=== PATIENT | male | born 1965 | race Caucasian/White ===

== ENCOUNTER 2017-02-16 11:16 | Emergency (ER) | payer MEDICARE ==
--- NOTE | 2017-02-16 12:19 | Emergency Department Report ---
Chief Complaint: Wound/Laceration Stated Complaint: HEAD WOUND - HPI History of Present Illness: 51M p/w c/o small abscess to back of scalp. On bactrim from UC but not getting better. HAS NOT had I&D - ROS Review of Systems: pain on back of scalp x2 days - Exam Vital Signs: Vital Signs 02/16/17 12:00 Temperature 97.7 F Pulse Rate 68 Blood Pressure 103/64 O2 Sat by Pulse 97 Oximetry Physical Exam: small abscess on back of scalp MSE screening note: Focused history and physical exam performed. Due to findings the following was ordered: MSE: 3cm occipital scalp abscess' 1- needs I&D 2- pt already on bactrim ED Disposition for MSE Condition: Stable
--- NOTE | 2017-02-16 16:08 | Emergency Department Report ---
ED Back Pain/Injury HPI - General Chief Complaint: Wound/Laceration Stated Complaint: HEAD WOUND Time Seen by Provider: 02/16/17 16:07 Source: patient Limitations: No Limitations - Related Data Allergies Allergy/AdvReac Type Severity Reaction Status Date / Time chlorpromazine HCl Allergy Hives Verified 02/16/17 11:56 [From Thorazine] haloperidol [From Haldol] Allergy Hives Verified 02/16/17 11:56 haloperidol lactate Allergy Hives Verified 02/16/17 11:56 [From Haldol] trazodone Allergy Hives Verified 02/16/17 11:56 ziprasidone HCl [From Geodon] Allergy Hives Verified 02/16/17 11:56 ziprasidone mesylate Allergy Hives Verified 02/16/17 11:56 [From Geodon] ED Review of Systems ROS: Stated complaint: HEAD WOUND Other details as noted in HPI ED Past Medical Hx - Past Medical History Hx Hypertension: Yes Hx Diabetes: Yes Hx Psychiatric Treatment: Yes (bibpolar) - Surgical History Past Surgical History?: Yes Additional Surgical History: ankle pins. - Social History Smoking Status: Never Smoker Substance Use Type: None ED Physical Exam - General Limitations: No Limitations ED Course Vital Signs 02/16/17 12:00 Temperature 97.7 F Pulse Rate 68 Blood Pressure 103/64 O2 Sat by Pulse 97 Oximetry Critical care attestation.: If time is entered above; I have spent that time in minutes in the direct care of this critically ill patient, excluding procedure time. ED Disposition Condition: Stable Referrals: PRIMARY CARE, [Primary Care Provider] - 3-5 Days
--- NOTE | 2017-02-16 16:57 | Emergency Department Report ---
Abscess Boil HPI - HPI Chief Complaint: Wound/Laceration Stated Complaint: HEAD WOUND Time Seen by Provider: 02/16/17 16:07 Duration: >1 Week (she had said that he had not to the back of his head for 8-9 months and it's getting worse. He said his primary care doctor in the [facility] is aware of it.) Location: Head Severity: Severe (7 out of 10 and sore worse with touch) History: Yes Pain (Knot at back of head.), Yes Previous History, No Fever, No Purulent Drainage, No Numbness, No Foreign Body, No Insect Bite HPI: Report that he is visiting from the [place] any primary care doctors in the [facility]. He said that he came to the emergency room if he has a knot to the right back of his head that he was seen in urgent care for and they gave him sulfa Bactrim which he took for 9 days but it's not getting better. He said that the swelling is getting worse. He said that rash started 8-9 months ago and his primary care doctor is aware of it and told him to leave it alone and he will see him when he comes back to the [place]. Patient said he is a diabetic and he is worried. He said the antibiotic did not help. Tetanus vaccine is up-to-date. He is on metformin and Lantus and said his blood glucose today was 80. Denies any fever or chills. Patient states that he thinks it started off from him shaving and is just getting bigger. Localized to affected area. Denies any drainage from the site. Home Medications: Previous Rx's Medication Instructions Recorded Last Taken Type Clindamycin [Clindamycin CAP] 300 mg PO Q8H #30 cap 02/16/17 Unknown Rx traMADol [Ultram] 50 mg PO Q6HR PRN #20 tablet 02/16/17 Unknown Rx Allergies/Adverse Reactions: Allergies Allergy/AdvReac Type Severity Reaction Status Date / Time chlorpromazine HCl Allergy Hives Verified 02/16/17 11:56 [From Thorazine] haloperidol [From Haldol] Allergy Hives Verified 02/16/17 11:56 haloperidol lactate Allergy Hives Verified 02/16/17 11:56 [From Haldol] trazodone Allergy Hives Verified 02/16/17 11:56 ziprasidone HCl [From Geodon] Allergy Hives Verified 02/16/17 11:56 ziprasidone mesylate Allergy Hives Verified 02/16/17 11:56 [From [facility]] ED Review of Systems ROS: Stated complaint: HEAD WOUND Other details as noted in HPI Comment: All other systems reviewed and negative Constitutional: no symptoms reported ENT: denies: ear pain, throat pain, epistaxis, congestion Respiratory: no symptoms reported Cardiovascular: denies: chest pain, palpitations, edema, syncope Gastrointestinal: denies: abdominal pain, nausea, vomiting, diarrhea Musculoskeletal: denies: back pain, joint swelling, arthralgia, myalgia Skin: rash (painful, red area to back of head) Neurological: denies: headache, weakness, abnormal gait, vertigo ED Past Medical Hx - Past Medical History Previous Medical History?: Yes Hx Hypertension: Yes Hx Diabetes: Yes Hx Psychiatric Treatment: Yes (bibpolar) - Surgical History Past Surgical History?: Yes Additional Surgical History: ankle pins. - Family History Family history: diabetes, hypertension - Social History Smoking Status: Never Smoker Substance Use Type: None - Medications Home Medications: Home Medications Medication Instructions Recorded Confirmed Last Taken Type Clindamycin [Clindamycin CAP] 300 mg PO Q8H #30 cap 02/16/17 Unknown Rx traMADol [Ultram] 50 mg PO Q6HR PRN #20 tablet 02/16/17 Unknown Rx ED Abscess Boil Physical Exam - Exam General: Vital signs noted. No distress. Alert and acting appropriately. This is a 51-year-old male well-nourished well-developed in no acute distress. Front/Back of Body, Lg (Color): 1 - Indurated erythema, tender to palpate area 2 cm to right occipital scalp area. No fluctuance. Size: 2 cm Exam: Yes Tenderness (right occipital scalp), Yes Surrounding Cellulites/ Erythema (right occipital scalp), Yes Normal Neurologic Exam, Yes Normal Circulation, No Fluctuance, No Lymphangitis, No Crepitation, No Heart Murmur Exam: EXT:No clubbing, cyanosis or edema. +2 pulses to all extremities no neurovascular compromise. Lungs: Sounds clear to auscultate bilaterally, Normal work of breathing. Cardiovascular: S1, S2. Regular rhythm negative murmur I & D Note - I & D Note I & D Note: Cellulitic area to right occipital scalp area unable to be incision and drained due to non-fluctuance. Area is indurated but no fluctuance. I discussed the patient that he will need to place warm compresses the site 3-4 times a day to facilitate soft then and drainage. Patient was given clindamycin 600 mg IM in emergency room. I also discussed with him that I'll change his antibiotic because current antibiotic is not working. Patient said his tetanus vaccine is up-to-date. ED Course Vital Signs 02/16/17 12:00 Temperature 97.7 F Pulse Rate 68 Blood Pressure 103/64 O2 Sat by Pulse 97 Oximetry Vital Signs 02/16/17 02/16/17 12:00 16:58 Temperature 97.7 F Pulse Rate 68 Respiratory 18 Rate Blood Pressure 103/64 O2 Sat by Pulse 97 Oximetry - Reevaluation(s) Reevaluation #1: 02/16/17 17:05 Patient given clindamycin 600 mg IM for cellulitic area right occipital scalp. He was given Motrin 600 mg by mouth for pain. Critical care attestation.: If time is entered above; I have spent that time in minutes in the direct care of this critically ill patient, excluding procedure time. ED Medical Decision Making - Medical Decision Making ED course: Pt here report that he is traveling from the [facility] and he has red , painful abscess to the back of his head that his primary care physician has been following. He said it started after he was shaven 8-9 months ago but it's getting bigger. Physical findings for 2 cm, erythema, tender to palpate indurated and nonfluctuant area to right posterior scalp. Unable to drain area due to non-fluctuance. Patient completed 9 days of Bactrim and has one more day to complete and I told him to finish Bactrim and he can go ahead and start clindamycin 3 times a day. Patient given clindamycin 600 mg in emergency room IM and also given Motrin 600 mg in emergency room. Patient said that he spoke with his primary care doctor in the [facility] and he said not to touch it until he comes back. Patient said that he went to urgent care clinic in [place] and that is where they prescribed him a Bactrim. I discussed with patient that he needs to follow-up with the rn observation regarding in cellulitic area that is not getting better to occipital scalp area. Patient given prescription for clindamycin and Ultram and referred to rn observation because he said he will be here until 02/28/2017 ED Disposition Clinical Impression: Abscess or cellulitis of scalp, Painful periwound skin Disposition: DC-01 TO HOME OR SELFCARE Is pt being admited?: No Does the pt Need Aspirin: No Condition: Stable Instructions: Cellulitis (ED), Abscess (ED) Additional Instructions: Please keep affected area clean and dry Please take antibiotic as prescribed Call your primary care physician and let them know that you were in the emergency room today. You will need to follow up with a rn observation in 2-3 days regarding in nonhealing abscess to scalp. Take Ultram for pain but please do not drive or operate heavy machinery while taking this medication causes drowsiness. please check your blood sugar daily and ensures that you have good control of blood sugar Please complete Bactrim DS and start clindamycin later tonight If you develop fever, increasing redness, nausea or vomiting before he can see her primary care rn observation please return to the emergency room ROSIO Please apply warm compresses to affected area 3-4 times a day Prescriptions: Clindamycin [Clindamycin CAP] 300 mg PO Q8H #30 cap traMADol [Ultram] 50 mg PO Q6HR PRN #20 tablet PRN Reason: Pain Referrals: PIYUSH ABAD MD [Staff Physician] - 2-3 Days Forms: Accompanied Note, Work/School Release Form(ED)
[2017-02-16] MEDS ORDERED: CLEOCIN IM ONE (16:59)
[2017-02-16] MEDS ORDERED: MOTRIN PO ONE (16:59)
[2017-02-16 17:41] VITALS: BP 106/73
== END 2017-02-16 17:41 | disposition home or self-care (01) ==
LOC: ED 11:16
DX: L02.811 Cutaneous abscess of head [any part, except face] (principal); L08.9 Local infection of the skin and subcutaneous tissue, unspecified; E11.9 Type 2 diabetes mellitus without complications; I10 Essential (primary) hypertension; Z88.8 Allergy status to other drugs, medicaments and biological substances
CPT/HCPCS: 96372

== ENCOUNTER 2017-02-20 04:01 | Emergency (ER) | payer MEDICARE ==
[2017-02-20 04:25] VITALS: BP 159/107
--- NOTE | 2017-02-20 06:48 | Emergency Department Report ---
ED General Adult HPI - General Chief complaint: Animal Bite Stated complaint: INSECT BITE TO HEAD Time Seen by Provider: 02/20/17 06:42 Source: patient Mode of arrival: Ambulatory Limitations: No Limitations - History of Present Illness Initial comments: pt is a 51 y/o aam with hx of DMII, htn, and chronic back pain who present for infected spider bite to posterior neck/scalp pt on clindamycin po started on advises that ed said abscess not soft enough to I&d on , but is getting softer and ready to pop, pt advised that he tried to drain the abscess himself at home. Onset/Timin -: days(s) Location: neck Radiation: non-radiation Severity scale (0 -10): 5 Quality: aching Consistency: constant Improves with: none Worsens with: other (palpation) Treatments Prior to Arrival: none - Related Data Previous Rx's Medication Instructions Recorded Last Taken Type Clindamycin [Clindamycin CAP] 300 mg PO Q8H #30 cap 02/16/17 Unknown Rx traMADol [Ultram] 50 mg PO Q6HR PRN #20 tablet 02/16/17 Unknown Rx Naproxen [Naprosyn TAB] 500 mg PO BID PRN #30 tablet 02/20/17 Unknown Rx Allergies Allergy/AdvReac Type Severity Reaction Status Date / Time chlorpromazine HCl Allergy Hives Verified 02/16/17 11:56 [From Thorazine] haloperidol [From Haldol] Allergy Hives Verified 02/16/17 11:56 haloperidol lactate Allergy Hives Verified 02/16/17 11:56 [From Haldol] trazodone Allergy Hives Verified 02/16/17 11:56 ziprasidone HCl [From Geodon] Allergy Hives Verified 02/16/17 11:56 ziprasidone mesylate Allergy Hives Verified 02/16/17 11:56 [From Geodon] ED Review of Systems ROS: Stated complaint: INSECT BITE TO HEAD Other details as noted in HPI Constitutional: denies: chills, fever Eyes: denies: eye pain, eye discharge, vision change ENT: denies: ear pain, throat pain Respiratory: denies: cough, shortness of breath, wheezing Cardiovascular: denies: chest pain, palpitations Endocrine: no symptoms reported Gastrointestinal: denies: abdominal pain, nausea, diarrhea Genitourinary: denies: urgency, dysuria Musculoskeletal: denies: back pain, joint swelling, arthralgia Skin: lesions (abscess occiptal scalp and neck ). denies: rash Neurological: denies: headache, weakness, paresthesias Psychiatric: denies: anxiety, depression Hematological/Lymphatic: denies: easy bleeding, easy bruising ED Past Medical Hx - Past Medical History Previous Medical History?: Yes Hx Hypertension: Yes Hx Diabetes: Yes Hx Psychiatric Treatment: Yes (bibpolar) - Surgical History Past Surgical History?: Yes Additional Surgical History: ankle pins. - Social History Smoking Status: Current Every Day Smoker Substance Use Type: None - Medications Home Medications: Home Medications Medication Instructions Recorded Confirmed Last Taken Type Clindamycin [Clindamycin CAP] 300 mg PO Q8H #30 cap 02/16/17 Unknown Rx traMADol [Ultram] 50 mg PO Q6HR PRN #20 tablet 02/16/17 Unknown Rx Naproxen [Naprosyn TAB] 500 mg PO BID PRN #30 tablet 02/20/17 Unknown Rx ED Physical Exam - General Limitations: No Limitations General appearance: alert, in no apparent distress - Head Head exam: Present: atraumatic, normocephalic, other (occipital abscess 1x3 cm erythema fluctuant painful to touch scant purulent drainage ) - Eye Eye exam: Present: normal appearance - ENT ENT exam: Present: mucous membranes moist - Neck Neck exam: Present: normal inspection - Respiratory Respiratory exam: Present: normal lung sounds bilaterally. Absent: respiratory distress - Cardiovascular Cardiovascular Exam: Present: regular rate, normal rhythm. Absent: systolic murmur, diastolic murmur, rubs, gallop - GI/Abdominal GI/Abdominal exam: Present: soft, normal bowel sounds - Rectal Rectal exam: Present: deferred - Extremities Exam Extremities exam: Present: normal inspection - Back Exam Back exam: Present: normal inspection - Neurological Exam Neurological exam: Present: alert, oriented X3 - Psychiatric Psychiatric exam: Present: normal affect, normal mood - Skin Skin exam: Present: warm, dry, intact, normal color, other (abscess as noted above ). Absent: rash ED Course Vital Signs 02/20/17 04:12 Temperature 97.9 F Pulse Rate 92 H Respiratory 20 Rate Blood Pressure 159/107 O2 Sat by Pulse 98 Oximetry - I & D Posterior Head Type of Procedure: Simple Site: posterior scalp/neck abscess 1 x 3 cm smooth erythema painful fluctuant Blade Size: 11 I & D Procedure: betadine prep Progress: abscess , cleaned with betadine solution , anesthesia with 1% lidocaine plain, 2 cc, incision straight x 1 with 11 blade, blunt disection with sterile forceps , output purulent moderate amount wound irrigated with sterile saline 50 cc, wound left open to air, as patient cannot tolerate packing, pt given wound care instructions pt verbalized agreement and understanding of same, pt tolerated procedure with minimal distress all bleeding controlled sterile dressing applied to wound. ED Medical Decision Making - Medical Decision Making pt is a 51 y/o aam with hx of DMII, htn, and chronic back pain who present for infected spider bite to posterior neck/scalp pt on clindamycin po started on advises that ed said abscess not soft enough to I&d on , but is getting softer and ready to pop, pt advised that he tried to drain the abscess himself at home. ID of posterior occipital abscess , see I&D note, pt given wound care instructions will follow up with primary care in 3 days for wound check or return to emergency if unable to get into primary care office. pt verbalized agreement and understanding with discharge plan. pt will continue roxicet currently rx by pain management, clindamycin currently rx an in patient possession at this time. Critical care attestation.: If time is entered above; I have spent that time in minutes in the direct care of this critically ill patient, excluding procedure time. ED Disposition Clinical Impression: Abscess or cellulitis of scalp Disposition: -01 TO HOME OR SELFCARE Is pt being admited?: No Does the pt Need Aspirin: No Condition: Good Prescriptions: Naproxen [Naprosyn TAB] 500 mg PO BID PRN #30 tablet PRN Reason: Pain Referrals: PRIMARY CARE, [Primary Care Provider] - 3-5 Days Forms: Work/School Release Form(ED) Time of Disposition: 06:59
== END 2017-02-20 07:06 | disposition home or self-care (01) ==
LOC: ED 04:01
DX: L02.811 Cutaneous abscess of head [any part, except face] (principal); L03.811 Cellulitis of head [any part, except face]; I10 Essential (primary) hypertension; E11.9 Type 2 diabetes mellitus without complications; F17.200 Nicotine dependence, unspecified, uncomplicated
CPT/HCPCS: 82962

== ENCOUNTER 2019-03-06 06:36 | Inpatient (IN) | payer MEDICARE ==
[2019-03-06 07:19] LABS: Basophils # (Auto) 0.1 K/mm3 (0.0-0.1); Basophils % (Auto) 0.7 % (0.0-1.8); Eosinophils % (Auto) 0.1 % (0.0-4.3); Hematocrit 45.3 % (35.5-45.6); Hemoglobin 15.4 gm/dl (11.8-15.2); Lymphocytes # (Auto) 3.4 K/mm3 (1.2-5.4); Lymphocytes % (Auto) 20.2 % (13.4-35.0); Mean Corpuscular HGB Conc 34 % (32-34); Mean Corpuscular Volume 84 fl (84-94); Monocytes # (Auto) 1.3 K/mm3 (0.0-0.8); Monocytes % (Auto) 7.9 % (0.0-7.3); Platelet Count 227 K/mm3 (140-440); Red Blood Count 5.37 M/mm3 (3.65-5.03)
[2019-03-06 07:27] LABS: BUN/Creatinine Ratio 13; Blood Urea Nitrogen 13 mg/dL (9-20); Calcium 9.9 mg/dL (8.4-10.2); Hemolysis Index 3
[2019-03-06 07:37] LABS: Bilirubin,Urine NEG (Negative); Blood,Urine MOD (Negative); Color,Urine Yellow (Yellow); Mucus,Urine FEW /HPF; Urobilinogen,Urine < 2.0 mg/dL (<2.0)
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
[2019-03-06 07:53] LABS: Benzodiazepines Screen,Urine PRESUMPTIVE NEGATIVE; Methadone Screen,Urine PRESUMPTIVE NEGATIVE; Opiate Screen,Urine PRESUMPTIVE NEGATIVE
[2019-03-06] MEDS ORDERED: ATIVAN PO ONE (07:57)
[2019-03-06 08:12] LABS: Amphetamine Screen,Urine PRESUMPTIVE POSITIVE; Cannabinoid Screen,Urine PRESUMPTIVE POSITIVE; Cocaine Screen,Urine PRESUMPTIVE POSITIVE
[2019-03-06] MEDS ORDERED: HumuLIN R IV ONE (08:12)
--- NOTE | 2019-03-06 08:30 | XRay Report ---
CHEST 1 VIEW 03/06/2019 8:05 AM INDICATION / CLINICAL INFORMATION: hypertension. COMPARISON: None available. FINDINGS: SUPPORT DEVICES: None. HEART / MEDIASTINUM: No significant abnormality. LUNGS / PLEURA: No significant pulmonary or pleural abnormality. No pneumothorax. ADDITIONAL FINDINGS: No significant additional findings. IMPRESSION: 1. No acute findings. Signer Name: Sandrine Monroy MD Signed: 03/06/2019 8:26 AM Workstation Name: [id number]
[2019-03-06 08:44] LABS: INR 1.06 (0.87-1.13)
[2019-03-06 08:45] LABS: Partial Thromboplastin Time 24.7 Sec. (24.2-36.6)
[2019-03-06 08:46] LABS: Creatine Kinase MB 7.5 ng/mL (0.0-4.0)
[2019-03-06] MEDS ORDERED: CATAPRES PO ONE (10:53)
[2019-03-06] MEDS ORDERED: NACL 0.9% 1000 ML 1,000 ML IV ONE (10:56)
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
[2019-03-06] MEDS ORDERED: D50W (25GM) Syringe IV PRN ×2 (11:37→11:41)
[2019-03-06] MEDS ORDERED: TYLENOL PO PRN (11:37)
[2019-03-06] MEDS ORDERED: ZOFRAN IV PRN (11:37)
[2019-03-06] MEDS ORDERED: SODIUM CHLORIDE FLUSH SYRINGE 10 ML IV PRN (11:37)
[2019-03-06] MEDS: ASPIRIN PO SCH (11:44)
[2019-03-06] MEDS ORDERED: NACL 0.9% 1000 ML 1,000 ML ONE (11:45)
[2019-03-06] MEDS ORDERED: NON-FORMULARY (Clonidine 0.3 MG) PO SCH ×2 (11:45→18:00)
[2019-03-06] MEDS ORDERED: ASPIRIN ONE (11:45)
[2019-03-06] MEDS: ROXICODONE PO PRN ×2 (16:49→23:09)
[2019-03-06] MEDS: HumaLOG SUB-Q SCH ×2 (20:19→22:11)
[2019-03-06] MEDS ORDERED: NON-FORMULARY (Seroquel 200 MG) PO SCH (22:00)
[2019-03-06] MEDS: CATAPRES PO SCH (22:12)
[2019-03-06] MEDS: LOVENOX SUB-Q SCH (22:13)
[2019-03-06] MEDS: SODIUM CHLORIDE FLUSH SYRINGE 10 ML IV SCH (22:13)
[2019-03-07 05:34] LABS: Basophils % (Auto) 0.4 % (0.0-1.8); Eosinophils # (Auto) 0.2 K/mm3 (0.0-0.4); Eosinophils % (Auto) 1.9 % (0.0-4.3); Hematocrit 40.8 % (35.5-45.6); Hemoglobin 13.7 gm/dl (11.8-15.2); Lymphocytes # (Auto) 2.8 K/mm3 (1.2-5.4); Lymphocytes % (Auto) 31.9 % (13.4-35.0); Mean Corpuscular HGB Conc 34 % (32-34); Mean Corpuscular Volume 86 fl (84-94); Monocytes # (Auto) 0.6 K/mm3 (0.0-0.8); Monocytes % (Auto) 7.2 % (0.0-7.3); Platelet Count 169 K/mm3 (140-440); Red Blood Count 4.77 M/mm3 (3.65-5.03); Red Cell Distribution Width 15.1 % (13.2-15.2)
[2019-03-07 05:57] LABS: BUN/Creatinine Ratio 14; Blood Urea Nitrogen 13 mg/dL (9-20); Calcium 8.7 mg/dL (8.4-10.2); Hemolysis Index 5
[2019-03-07] MEDS: HumaLOG SUB-Q SCH ×4 (08:48→22:51)
[2019-03-07] MEDS: ASPIRIN PO SCH (10:38)
[2019-03-07] MEDS: CATAPRES PO SCH ×2 (10:38→21:55)
[2019-03-07] MEDS: SODIUM CHLORIDE FLUSH SYRINGE 10 ML IV SCH ×2 (10:39→22:50)
[2019-03-07] MEDS: ROXICODONE PO PRN ×2 (10:54→18:15)
[2019-03-07] MEDS ORDERED: AFLURIA QUAD 2019-2020 (3YR UP) IM ONE (12:00)
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
[2019-03-07] MEDS: BUSPAR PO SCH ×2 (15:31→21:56)
--- NOTE | 2019-03-07 18:17 | Progress Note ---
Assessment and Plan Assessment and plan: Suicidal ideation [facility] consulted, following 1013 form signed by ED Physician Bipolar disorder Hypertensive urgency resumed meds diabetes mellitus type 2 , uncontrolled accucheck Increase Lantus to 40 Units qhs. he was on 55 Units qhs at home Polysubstance abuse. I counseled him on importance of quittting cocaine abuse Marijuana abuse Amphetamine abuse Full code status Patient is medically clear for discharge or transfer. History Interval history: Suicidal ideations No chest pain Blood glucose high Hospitalist Physical - Physical exam Narrative exam: Gen: Not in acute distress, lying in bed, HEENT: Surgical scar on scalp, Neck: supple, no JVD Heart: S1 and S2 reg, no murmurs, rubs or gallop Lungs: Clear to auscultation, no rhonchi, no wheeze Abd: soft, non tender, non distended, normal BS, Ext: No edema, no clubbing, no cyanosis Neuro: Awake, alert, oriented X 3, no focal neurological signs Psych:suicidal ideations - Constitutional Vitals: Temp Pulse Resp BP Pulse Ox 97.3 F L 79 18 123/78 96 03/07/19 05:10 03/07/19 10:38 03/07/19 05:10 03/07/19 10:38 03/07/19 05:10 Results - Labs CBC & Chem 7: 03/07/19 04:57 03/07/19 04:57 Labs: Laboratory Last Values WBC 8.8 K/mm3 (4.5-11.0) 03/07/19 04:57 RBC 4.77 M/mm3 (3.65-5.03) 03/07/19 04:57 Hgb 13.7 gm/dl (11.8-15.2) 03/07/19 04:57 Hct 40.8 % (35.5-45.6) 03/07/19 04:57 MCV 86 fl (84-94) 03/07/19 04:57 MCH 29 pg (28-32) 03/07/19 04:57 MCHC 34 % (32-34) 03/07/19 04:57 RDW 15.1 % (13.2-15.2) 03/07/19 04:57 Plt Count 169 K/mm3 (140-440) 03/07/19 04:57 Lymph % (Auto) 31.9 % (13.4-35.0) 03/07/19 04:57 [place] % (Auto) 7.2 % (0.0-7.3) 03/07/19 04:57 Eos % (Auto) 1.9 % (0.0-4.3) 03/07/19 04:57 Baso % (Auto) 0.4 % (0.0-1.8) 03/07/19 04:57 Lymph # 2.8 K/mm3 (1.2-5.4) 03/07/19 04:57 [place] # 0.6 K/mm3 (0.0-0.8) 03/07/19 04:57 Eos # 0.2 K/mm3 (0.0-0.4) 03/07/19 04:57 Baso # 0.0 K/mm3 (0.0-0.1) 03/07/19 04:57 Seg Neutrophils % 58.6 % (40.0-70.0) 03/07/19 04:57 Seg Neutrophils # 5.2 K/mm3 (1.8-7.7) 03/07/19 04:57 PT 13.5 Sec. (12.2-14.9) 03/06/19 08:15 INR 1.06 (0.87-1.13) 03/06/19 08:15 APTT 24.7 Sec. (24.2-36.6) 03/06/19 08:15 Sodium 138 mmol/L (137-145) 03/07/19 04:57 Potassium 3.9 mmol/L (3.6-5.0) 03/07/19 04:57 Chloride 100.5 mmol/L (98-107) 03/07/19 04:57 Carbon Dioxide 24 mmol/L (22-30) 03/07/19 04:57 Anion Gap 17 mmol/L 03/07/19 04:57 BUN 13 mg/dL (9-20) 03/07/19 04:57 Creatinine 0.9 mg/dL (0.8-1.5) 03/07/19 04:57 Estimated GFR > 60 ml/min 03/07/19 04:57 BUN/Creatinine Ratio 14 % 03/07/19 04:57 Glucose 334 mg/dL (75-100) H 03/07/19 04:57 POC Glucose 258 (70-105) H 03/07/19 16:37 Lactic Acid 1.50 mmol/L (0.7-2.0) 03/06/19 13:01 Calcium 8.7 mg/dL (8.4-10.2) 03/07/19 04:57 Magnesium 2.00 mg/dL (1.7-2.3) 03/06/19 08:15 Total Creatine Kinase 357 units/L (55-170) H 03/06/19 08:15 CK-MB (CK-2) 7.5 ng/mL (0.0-4.0) H 03/06/19 08:15 CK-MB (CK-2) Rel Index 2.1 (0-4) 03/06/19 08:15 Troponin T < 0.010 ng/mL (0.00-0.029) 03/06/19 08:15 NT-Pro-B Natriuret Pep 172.1 pg/mL (0-900) 03/06/19 08:15 Urine Color Yellow (Yellow) 03/06/19 07:11 Urine Turbidity Clear (Clear) 03/06/19 07:11 Urine pH 5.0 (5.0-7.0) 03/06/19 07:11 Ur Specific [place] 1.024 (1.003-1.030) 03/06/19 07:11 Urine Protein 30 mg/dl mg/dL (Negative) 03/06/19 07:11 Urine Glucose (UA) >=500 mg/dL (Negative) 03/06/19 07:11 Urine Ketones Neg mg/dL (Negative) 03/06/19 07:11 Urine Blood Mod (Negative) 03/06/19 07:11 Urine Nitrite Neg (Negative) 03/06/19 07:11 Urine Bilirubin Neg (Negative) 03/06/19 07:11 Urine Urobilinogen < 2.0 mg/dL (<2.0) 03/06/19 07:11 Ur Leukocyte Esterase Neg (Negative) 03/06/19 07:11 Urine WBC (Auto) 1.0 /HPF (0.0-6.0) 03/06/19 07:11 Urine RBC (Auto) 3.0 /HPF (0.0-6.0) 03/06/19 07:11 Urine Mucus Few /HPF 03/06/19 07:11 Salicylates < 0.3 mg/dL (2.8-20.0) L 03/06/19 06:50 Urine Opiates Screen Presumptive negative 03/06/19 07:11 Urine Methadone Screen Presumptive negative 03/06/19 07:11 Acetaminophen < 5.0 ug/mL (10.0-30.0) L 03/06/19 06:50 Ur Barbiturates Screen Presumptive negative 03/06/19 07:11 Ur Phencyclidine Scrn Presumptive negative 03/06/19 07:11 Ur Amphetamines Screen Presumptive positive 03/06/19 07:11 U Benzodiazepines Scrn Presumptive negative 03/06/19 07:11 Urine Cocaine Screen Presumptive positive 03/06/19 07:11 U Marijuana (THC) Screen Presumptive positive 03/06/19 07:11 Drugs of Abuse Note Disclamer 03/06/19 07:11 Plasma/Serum Alcohol < 0.01 % (0-0.07) 03/06/19 06:50 Active Medications - Current Medications Current Medications: Generic Name Dose Route Start Last Admin Trade Name Freq PRN Reason Stop Dose Admin Acetaminophen 650 mg 03/06/19 11:37 Tylenol PO Q4H PRN Pain MILD(1-3)/Fever >100.5/STEELE Aspirin 325 mg 03/06/19 11:30 03/07/19 10:38 Aspirin PO 325 mg QDAY АННА Administration Buspirone HCl 7.5 mg 03/07/19 15:00 03/07/19 15:31 Buspar PO 7.5 mg BID АННА Administration Clonidine HCl 0.3 mg 03/06/19 22:00 03/07/19 10:38 Catapres PO 0.3 mg BID АННА Administration Dextrose 50 ml 03/06/19 11:41 D50w (25gm) Syringe IV PRN PRN Hypoglycemia Enoxaparin Sodium 40 mg 03/06/19 22:00 03/06/19 22:13 Lovenox SUB-Q 40 mg QDAY@2200 АННА Administration Insulin Glargine 10 units 03/07/19 22:00 Lantus SUB-Q QHS АННА Insulin Human Lispro 0 unit 03/06/19 16:30 03/07/19 17:02 Humalog SUB-Q 4 unit AC АННА Administration Protocol Insulin Human Lispro 0 unit 03/06/19 22:00 03/06/19 22:11 Humalog SUB-Q 4 unit QHS АННА Administration Protocol Melatonin 5 mg 03/07/19 22:00 Melatonin PO QHS АННА Ondansetron HCl 4 mg 03/06/19 11:37 Zofran IV Q8H PRN Nausea And Vomiting Oxycodone HCl 10 mg 03/06/19 14:25 03/07/19 18:15 Roxicodone PO 10 mg Q6H PRN Administration Pain, Moderate (4-6) Quetiapine Fumarate 200 mg 03/06/19 22:00 03/06/19 22:12 Seroquel PO 200 mg HS АННА Administration Sodium Chloride 10 ml 03/06/19 22:00 03/07/19 10:39 Sodium Chloride Flush Syringe 10 Ml IV 10 ml BID АННА Administration Sodium Chloride 10 ml 03/06/19 11:37 Sodium Chloride Flush Syringe 10 Ml IV PRN PRN LINE FLUSH
[2019-03-07] MEDS: MELATONIN PO SCH (21:55)
[2019-03-07] MEDS: LOVENOX SUB-Q SCH (21:57)
[2019-03-07] MEDS ORDERED: LANTUS SUB-Q SCH (22:00)
[2019-03-08] MEDS: ROXICODONE PO PRN ×3 (00:33→17:21)
[2019-03-08] MEDS: HumaLOG SUB-Q SCH ×4 (08:26→22:07)
[2019-03-08] MEDS: SODIUM CHLORIDE FLUSH SYRINGE 10 ML IV SCH ×2 (10:31→22:29)
[2019-03-08] MEDS: ASPIRIN PO SCH (10:31)
[2019-03-08] MEDS: BUSPAR PO SCH ×2 (10:31→22:06)
[2019-03-08] MEDS: CATAPRES PO SCH ×2 (10:31→22:07)
[2019-03-08] MEDS ORDERED: LANTUS SUB-Q SCH ×5 (12:00→22:00)
--- NOTE | 2019-03-08 13:10 | Progress Note ---
Subjective - Reason for Consult Consult date: 03/08/19 Reason for consult: Psychiatry Follow-up - Chief Complaint Chief complaint: "i don't understand myself" 53 y.o. AA male who presented to the ER for hypertension and SI's. Today the patient was calm during the assessment. He continue to endorse SI's without a suicide plan. Several attempts was made to engage the patient reference his SI. but was unsuccessful. He is adamant that his life isn't well at this time. He denies HI's and AVH's. He denies any side effects from his medication. Mental Status Exam - Vital signs Last Vital Signs Temp 97.7 F 03/08/19 11:36 Pulse 59 L 03/08/19 11:36 Resp 20 03/08/19 11:36 BP 116/83 03/08/19 11:36 Pulse Ox 95 03/08/19 11:36 - Exam Narrative exam: MSE: Appearance: calm Behavior: regular eye contact Speech: regular rate and low tone Mood: "not well" Affect: flat Thought Process: circumstantial Thought Content: denies HI's and AVH's Motor Activity: sitting up in bed Cognition: A/O x 3 Insight: fair Judgment: poor Assessment and Plan Impression: Unspecified Mood DO. Unspecified Anxiety DO. Substance Use DO (amphetamines/cocaine). Cannabis Use DO. Today the patient was calm during the assessment. DDx: Substance Induced Mood DO Recommendations/Plan: Continue 1013, Seroquel 200 mg PO HS for mood, Melatonin 5 mg PO HS for sleep, and Buspar 7.5 mg PO BID for anxiety. Discussed possible metabolic side effects of Seroquel with the patient, he verbalized understanding. Baseline A1c/Lipid Panel in the AM. Dispo: The patient was referred to inpatient psy services. Staffed with Dr Cheyenne Escalante.
--- NOTE | 2019-03-08 18:53 | Progress Note ---
Assessment and Plan Assessment and plan: Suicidal ideation Psych consulted, following 1013 form signed by ED Physician Bipolar disorder Hypertensive urgency resumed meds diabetes mellitus type 2 , uncontrolled accucheck Increase Lantus to home dose of 55 Units qhs Polysubstance abuse. I counseled him on importance of quitting cocaine abuse Marijuana abuse Amphetamine abuse sirs without organ dysfunction Full code status Patient is medically clear for discharge or transfer to inpatient psych. History Interval history: Patient seen and examined, resting comfortably, no new complaints, but still voices suicidal ideation Hospitalist Physical - Physical exam Narrative exam: Gen: Not in acute distress, lying in bed, HEENT: Surgical scar on scalp, Neck: supple, no JVD Heart: S1 and S2 reg, no murmurs, rubs or gallop Lungs: Clear to auscultation, no rhonchi, no wheeze Abd: soft, non tender, non distended, normal BS, Ext: No edema, no clubbing, no cyanosis Neuro: Awake, alert, oriented X 3, no focal neurological signs Psych:suicidal ideation - Constitutional Vitals: Temp Pulse Resp BP Pulse Ox 97.1 F L 68 20 121/90 98 03/08/19 16:51 03/08/19 16:51 03/08/19 16:51 03/08/19 16:51 03/08/19 16:51 Results - Labs CBC & Chem 7: 03/07/19 04:57 03/07/19 04:57 Labs: Laboratory Last Values WBC 8.8 K/mm3 (4.5-11.0) 03/07/19 04:57 RBC 4.77 M/mm3 (3.65-5.03) 03/07/19 04:57 Hgb 13.7 gm/dl (11.8-15.2) 03/07/19 04:57 Hct 40.8 % (35.5-45.6) 03/07/19 04:57 MCV 86 fl (84-94) 03/07/19 04:57 MCH 29 pg (28-32) 03/07/19 04:57 MCHC 34 % (32-34) 03/07/19 04:57 RDW 15.1 % (13.2-15.2) 03/07/19 04:57 Plt Count 169 K/mm3 (140-440) 03/07/19 04:57 Lymph % (Auto) 31.9 % (13.4-35.0) 03/07/19 04:57 [place] % (Auto) 7.2 % (0.0-7.3) 03/07/19 04:57 Eos % (Auto) 1.9 % (0.0-4.3) 03/07/19 04:57 Baso % (Auto) 0.4 % (0.0-1.8) 03/07/19 04:57 Lymph # 2.8 K/mm3 (1.2-5.4) 03/07/19 04:57 [place] # 0.6 K/mm3 (0.0-0.8) 03/07/19 04:57 Eos # 0.2 K/mm3 (0.0-0.4) 03/07/19 04:57 Baso # 0.0 K/mm3 (0.0-0.1) 03/07/19 04:57 Seg Neutrophils % 58.6 % (40.0-70.0) 03/07/19 04:57 Seg Neutrophils # 5.2 K/mm3 (1.8-7.7) 03/07/19 04:57 PT 13.5 Sec. (12.2-14.9) 03/06/19 08:15 INR 1.06 (0.87-1.13) 03/06/19 08:15 APTT 24.7 Sec. (24.2-36.6) 03/06/19 08:15 Sodium 138 mmol/L (137-145) 03/07/19 04:57 Potassium 3.9 mmol/L (3.6-5.0) 03/07/19 04:57 Chloride 100.5 mmol/L (98-107) 03/07/19 04:57 Carbon Dioxide 24 mmol/L (22-30) 03/07/19 04:57 Anion Gap 17 mmol/L 03/07/19 04:57 BUN 13 mg/dL (9-20) 03/07/19 04:57 Creatinine 0.9 mg/dL (0.8-1.5) 03/07/19 04:57 Estimated GFR > 60 ml/min 03/07/19 04:57 BUN/Creatinine Ratio 14 % 03/07/19 04:57 Glucose 334 mg/dL (75-100) H 03/07/19 04:57 POC Glucose 278 (70-105) H 03/08/19 17:02 Hemoglobin A1c 11.1 % (4-6) H 03/08/19 12:08 Lactic Acid 1.50 mmol/L (0.7-2.0) 03/06/19 13:01 Calcium 8.7 mg/dL (8.4-10.2) 03/07/19 04:57 Magnesium 2.00 mg/dL (1.7-2.3) 03/06/19 08:15 Total Creatine Kinase 357 units/L (55-170) H 03/06/19 08:15 CK-MB (CK-2) 7.5 ng/mL (0.0-4.0) H 03/06/19 08:15 CK-MB (CK-2) Rel Index 2.1 (0-4) 03/06/19 08:15 Troponin T < 0.010 ng/mL (0.00-0.029) 03/06/19 08:15 NT-Pro-B Natriuret Pep 172.1 pg/mL (0-900) 03/06/19 08:15 Triglycerides 197 mg/dL (2-149) H 03/08/19 12:08 Cholesterol 148 mg/dL (50-199) 03/08/19 12:08 LDL Cholesterol Direct 93 mg/dL (50-130) 03/08/19 12:08 Urine Color Yellow (Yellow) 03/06/19 07:11 Urine Turbidity Clear (Clear) 03/06/19 07:11 Urine pH 5.0 (5.0-7.0) 03/06/19 07:11 Ur Specific [place] 1.024 (1.003-1.030) 03/06/19 07:11 Urine Protein 30 mg/dl mg/dL (Negative) 03/06/19 07:11 Urine Glucose (UA) >=500 mg/dL (Negative) 03/06/19 07:11 Urine Ketones Neg mg/dL (Negative) 03/06/19 07:11 Urine Blood Mod (Negative) 03/06/19 07:11 Urine Nitrite Neg (Negative) 03/06/19 07:11 Urine Bilirubin Neg (Negative) 03/06/19 07:11 Urine Urobilinogen < 2.0 mg/dL (<2.0) 03/06/19 07:11 Ur Leukocyte Esterase Neg (Negative) 03/06/19 07:11 Urine WBC (Auto) 1.0 /HPF (0.0-6.0) 03/06/19 07:11 Urine RBC (Auto) 3.0 /HPF (0.0-6.0) 03/06/19 07:11 Urine Mucus Few /HPF 03/06/19 07:11 Salicylates < 0.3 mg/dL (2.8-20.0) L 03/06/19 06:50 Urine Opiates Screen Presumptive negative 03/06/19 07:11 Urine Methadone Screen Presumptive negative 03/06/19 07:11 Acetaminophen < 5.0 ug/mL (10.0-30.0) L 03/06/19 06:50 Ur Barbiturates Screen Presumptive negative 03/06/19 07:11 Ur Phencyclidine Scrn Presumptive negative 03/06/19 07:11 Ur Amphetamines Screen Presumptive positive 03/06/19 07:11 U Benzodiazepines Scrn Presumptive negative 03/06/19 07:11 Urine Cocaine Screen Presumptive positive 03/06/19 07:11 U Marijuana (THC) Screen Presumptive positive 03/06/19 07:11 Drugs of Abuse Note Disclamer 03/06/19 07:11 Plasma/Serum Alcohol < 0.01 % (0-0.07) 03/06/19 06:50 Active Medications - Current Medications Current Medications: Generic Name Dose Route Start Last Admin Trade Name Freq PRN Reason Stop Dose Admin Acetaminophen 650 mg 03/06/19 11:37 Tylenol PO Q4H PRN Pain MILD(1-3)/Fever >100.5/STEELE Aspirin 325 mg 03/06/19 11:30 03/08/19 10:31 Aspirin PO 325 mg QDAY АННА Administration Buspirone HCl 7.5 mg 03/07/19 15:00 03/08/19 10:31 Buspar PO 7.5 mg BID АННА Administration Clonidine HCl 0.3 mg 03/06/19 22:00 03/08/19 10:31 Catapres PO 0.3 mg BID АННА Administration Dextrose 50 ml 03/06/19 11:41 D50w (25gm) Syringe IV PRN PRN Hypoglycemia Enoxaparin Sodium 40 mg 03/06/19 22:00 03/07/19 21:57 Lovenox SUB-Q 40 mg QDAY@2200 АННА Administration Insulin Glargine 55 units 03/08/19 22:00 Lantus SUB-Q QHS АННА Insulin Human Lispro 0 unit 03/06/19 16:30 03/08/19 17:17 Humalog SUB-Q 6 unit AC АННА Administration Protocol Insulin Human Lispro 0 unit 03/06/19 22:00 03/07/19 22:51 Humalog SUB-Q 6 unit QHS АННА Administration Protocol Melatonin 5 mg 03/07/19 22:00 03/07/19 21:55 Melatonin PO 5 mg QHS АННА Administration Ondansetron HCl 4 mg 03/06/19 11:37 Zofran IV Q8H PRN Nausea And Vomiting Oxycodone HCl 10 mg 03/06/19 14:25 03/08/19 17:21 Roxicodone PO 10 mg Q6H PRN Administration Pain, Moderate (4-6) Quetiapine Fumarate 200 mg 03/06/19 22:00 03/07/19 21:55 Seroquel PO 200 mg HS АННА Administration Sodium Chloride 10 ml 03/06/19 22:00 03/08/19 10:31 Sodium Chloride Flush Syringe 10 Ml IV 10 ml BID АННА Administration Sodium Chloride 10 ml 03/06/19 11:37 Sodium Chloride Flush Syringe 10 Ml IV PRN PRN LINE FLUSH
[2019-03-08] MEDS ORDERED: LANTUS SQ SCH (22:00)
[2019-03-08] MEDS: LOVENOX SUB-Q SCH (22:05)
[2019-03-08] MEDS: MELATONIN PO SCH (22:07)
[2019-03-09 06:11] LABS: Chol/HDL Ratio 5.28 %
[2019-03-09] MEDS: HumaLOG SUB-Q SCH ×2 (07:30→11:30)
[2019-03-09] MEDS: ROXICODONE PO PRN ×2 (08:08→14:35)
[2019-03-09] MEDS: BUSPAR PO SCH (09:16)
[2019-03-09] MEDS: ASPIRIN PO SCH (09:17)
[2019-03-09] MEDS: CATAPRES PO SCH (09:17)
[2019-03-09] MEDS: SODIUM CHLORIDE FLUSH SYRINGE 10 ML IV SCH (09:18)
--- NOTE | 2019-03-09 11:24 | Discharge Summary ---
Providers - Providers Date of Admission: 03/06/19 10:42 Attending physician: MUNA SHINE MD 03/06/19 09:47 Consult to Mental Health [CONS] Stat Reason For Exam: polysubstance abuse SI h/o [facility] Place consult to:: mental health Notified:: no 03/07/19 06:47 Consult to Case Management [CONS] Routine Services Needed at Discharge: Department Manager Notified:: no Primary care physician: HERBOLOGIST Hospitalization Condition: Stable Hospital course: Patient is 53 yo with hypertension, diabetes, chronic pain, bipolar disorder, polysubstance abuse. He presents with suicidal ideations. He states he feels like hurting himself. he denies chest pain or shortness of breath. he was seen and evaluated in ED and is being admitted for further evaluation. Suicidal ideation Psych consulted, following, Adjusted medications and now transferred to inpatient psych 1013 form signed by ED Physician Bipolar disorder PER PSYCH Hypertensive urgency resumed meds diabetes mellitus type 2 , uncontrolled accucheck Increase Lantus to home dose of 55 Units qhs Polysubstance abuse.cocaine abuse/Marijuana abuse/Amphetamine abuse I counseled him on importance of quitting- 15 mins spent sirs without organ dysfunction Full code status Patient is medically clear for discharge or transfer to inpatient psych. Disposition: DC/TX-65 PSY HOSP/PSY UNIT Time spent for discharge: 35 MINS Exam - Constitutional Vitals: Temp Pulse Resp BP Pulse Ox 97.1 F L 103 H 18 133/93 95 03/08/19 16:51 03/09/19 09:17 03/08/19 21:48 03/09/19 09:17 03/08/19 21:48 Plan Activity: advance as tolerated, fall precautions Diet: regular Special Instructions: record daily BP diary Follow up with: PRIMARY CARE, [Primary Care Provider] - 3-5 Days Prescriptions: Melatonin [Melatonin 5MG TAB] 5 mg PO QHS #30 tablet Aspirin 325 mg PO QDAY #30 tablet busPIRone [Buspar] 7.5 mg PO BID #60 tablet oxyCODONE [roxiCODONE] 10 mg PO Q6H PRN #14 tablet PRN Reason: Pain, Moderate (4-6)
[2019-03-09 13:39] VITALS: BP 115/79
--- NOTE | 2019-03-09 14:13 | Progress Note ---
Mental Status Exam - Vital signs Last Vital Signs Temp 97.7 F 03/09/19 12:37 Pulse 60 03/09/19 12:37 Resp 18 03/09/19 12:37 BP 115/79 03/09/19 12:37 Pulse Ox 94 03/09/19 12:37
== END 2019-03-09 14:50 | DRG 638 ==
LOC: ED 06:36 → 3A 10:42 → EEVIPCON 10:42
PROVIDERS: ADMIT Internal Medicine; ATTEND Internal Medicine
DX: E11.65 Type 2 diabetes mellitus with hyperglycemia (principal); R45.851 Suicidal ideations; R65.10 Systemic inflammatory response syndrome (SIRS) of non-infectious origin without acute organ dysfunction; I16.0 Hypertensive urgency; I10 Essential (primary) hypertension; F19.10 Other psychoactive substance abuse, uncomplicated; F31.9 Bipolar disorder, unspecified; F14.10 Cocaine abuse, uncomplicated; F15.10 Other stimulant abuse, uncomplicated; G89.29 Other chronic pain; F12.10 Cannabis abuse, uncomplicated; F17.200 Nicotine dependence, unspecified, uncomplicated; D72.829 Elevated white blood cell count, unspecified; Z71.51 Drug abuse counseling and surveillance of drug abuser; Z79.899 Other long term (current) drug therapy; Z82.49 Family history of ischemic heart disease and other diseases of the circulatory system; Z83.3 Family history of diabetes mellitus; Z72.89 Other problems related to lifestyle
CPT/HCPCS: 36415; 71045; 80048; 80061; 80307; 80320; 81001; 82140; 82550; 82553; 82962; 83036; 83735; 83880; 84484; 85025; 85610; 85730; 87040; 90686; 93005; 93010; 96372; 96374; 96375; G0378; G0480; J1650; J1815; J7030

== ENCOUNTER 2020-08-02 09:11 | Emergency (ER) | payer MEDICARE ==
[2020-08-02 09:51] LABS: Basophils # (Auto) 0.1 K/mm3 (0.0-0.1); Basophils % (Auto) 0.6 % (0.0-1.8); Eosinophils # (Auto) 0.3 K/mm3 (0.0-0.4); Eosinophils % (Auto) 2.7 % (0.0-4.3); Hematocrit 42.8 % (35.5-45.6); Hemoglobin 14.8 gm/dl (11.8-15.2); Lymphocytes % (Auto) 30.8 % (13.4-35.0); Mean Corpuscular HGB Conc 35 % (32-34); Mean Corpuscular Volume 85 fl (84-94); Monocytes # (Auto) 0.8 K/mm3 (0.0-0.8); Monocytes % (Auto) 7.7 % (0.0-7.3); Platelet Count 212 K/mm3 (140-440); Red Blood Count 5.05 M/mm3 (3.65-5.03); Red Cell Distribution Width 15.6 % (13.2-15.2)
--- NOTE | 2020-08-02 09:56 | Emergency Department Report ---
ED General Adult HPI - General Chief complaint: Psych Stated complaint: MH EVAL/SUCIDIAL THOUGHTS Time Seen by Provider: 08/02/20 09:55 Source: patient Mode of arrival: Ambulatory Limitations: No Limitations - History of Present Illness Initial comments: Patient is a 54-year-old male presents emergency department for what he describes as exacerbation of bipolar disorder. Patient states he is having suicidal thoughts, would like to shoot himself with a handgun, denies having his own gun. Patient denies homicidal ideation - Related Data Home Medications Medication Instructions Recorded Confirmed Last Taken ALPRAZolam [Xanax TAB] 2 mg PO DAILY 08/02/20 08/02/20 08/01/20 Lantus VIAL 40 units SQ HS 08/02/20 08/02/20 08/01/20 Previous Rx's Medication Instructions Recorded Last Taken Type oxyCODONE [roxiCODONE] 10 mg PO Q6H PRN #14 tablet 03/09/19 Unknown Rx Aspirin 325 mg PO QDAY #30 tablet 03/18/19 08/02/20 Rx QUEtiapine [SEROquel] 50 mg PO BIDBL #120 tablet 03/18/19 08/01/20 Rx QUEtiapine [SEROquel] 200 mg PO HS #30 tablet 03/18/19 08/01/20 Rx cloNIDine 0.3 mg PO BID #60 03/18/19 08/01/20 Rx Allergies Allergy/AdvReac Type Severity Reaction Status Date / Time trazodone Allergy Severe Priapism Verified 08/02/20 09:16 chlorpromazine HCl Allergy Hives Verified 08/02/20 09:16 [From Thorazine] haloperidol [From Haldol] Allergy Hives Verified 08/02/20 09:16 haloperidol lactate Allergy Hives Verified 08/02/20 09:16 [From Haldol] ziprasidone HCl [From Geodon] Allergy Hives Verified 08/02/20 09:16 ziprasidone mesylate Allergy Hives Verified 08/02/20 09:16 [From Geodon] ED Review of Systems ROS: Stated complaint: MH EVAL/SUCIDIAL THOUGHTS Other details as noted in HPI Constitutional: denies: chills, fever Eyes: denies: eye pain, eye discharge, vision change ENT: denies: ear pain, throat pain Respiratory: denies: cough, shortness of breath, wheezing Cardiovascular: denies: chest pain, palpitations Endocrine: no symptoms reported Gastrointestinal: denies: abdominal pain, nausea, diarrhea Genitourinary: denies: urgency, dysuria Musculoskeletal: denies: back pain, joint swelling, arthralgia Skin: denies: rash, lesions Neurological: denies: headache, weakness, paresthesias Psychiatric: as per HPI Hematological/Lymphatic: denies: easy bleeding, easy bruising ED Past Medical Hx - Past Medical History Hx Hypertension: Yes Hx Congestive Heart Failure: No Hx Diabetes: Yes Hx Renal Disease: No Hx Arthritis: No Hx Seizures: No Hx Psychiatric Treatment: Yes (bibpolar) Hx Asthma: No Hx COPD: No Hx Dementia: No - Surgical History Hx Cholecystectomy: No Hx Appendectomy: No Additional Surgical History: ankle pins. Plate in head and rods in arms - Social History Smoking Status: Never Smoker Substance Use Type: Alcohol, Marijuana - Medications Home Medications: Home Medications Medication Instructions Recorded Confirmed Last Taken Type oxyCODONE [roxiCODONE] 10 mg PO Q6H PRN #14 tablet 03/09/19 08/02/20 Unknown Rx Aspirin 325 mg PO QDAY #30 tablet 03/18/19 08/02/20 08/02/20 Rx QUEtiapine [SEROquel] 50 mg PO BIDBL #120 tablet 03/18/19 08/02/20 08/01/20 Rx QUEtiapine [SEROquel] 200 mg PO HS #30 tablet 03/18/19 08/02/20 08/01/20 Rx cloNIDine 0.3 mg PO BID #60 03/18/19 08/02/20 08/01/20 Rx ALPRAZolam [Xanax TAB] 2 mg PO DAILY 08/02/20 08/02/20 08/01/20 History Lantus VIAL 40 units SQ HS 08/02/20 08/02/20 08/01/20 History ED Physical Exam - General Limitations: No Limitations General appearance: alert, in no apparent distress - Head Head exam: Present: atraumatic, normocephalic - Eye Eye exam: Present: normal appearance - ENT ENT exam: Present: mucous membranes moist - Neck Neck exam: Present: normal inspection - Respiratory Respiratory exam: Present: normal lung sounds bilaterally. Absent: respiratory distress - Cardiovascular Cardiovascular Exam: Present: regular rate, normal rhythm - GI/Abdominal GI/Abdominal exam: Present: soft, normal bowel sounds - Rectal Rectal exam: Present: deferred - Extremities Exam Extremities exam: Present: normal inspection - Back Exam Back exam: Present: normal inspection - Neurological Exam Neurological exam: Present: alert, oriented X3 - Psychiatric Psychiatric exam: Present: normal affect, normal mood - Skin Skin exam: Present: warm, dry, intact, normal color. Absent: rash ED Course Vital Signs 08/02/20 08/02/20 08/02/20 09:17 11:08 13:11 Temperature 97.9 F 97.9 F Pulse Rate 97 H 89 Respiratory 18 18 20 Rate Blood Pressure 161/107 Blood Pressure 145/70 [Left] O2 Sat by Pulse 96 96 Oximetry - Reevaluation(s) Reevaluation #1: 08/02/20 12:55 Psychiatry request 1013 to hold patient for psychiatric placement ED Medical Decision Making - Lab Data Result diagrams: 08/02/20 09:32 08/02/20 09:32 Lab Results 08/02/20 08/02/20 08/02/20 Range/Units 09:32 09:32 09:32 WBC (4.5-11.0) K/mm3 RBC (3.65-5.03) M/mm3 Hgb (11.8-15.2) gm/dl Hct (35.5-45.6) % MCV (84-94) fl MCH (28-32) pg MCHC (32-34) % RDW (13.2-15.2) % Plt Count (140-440) K/mm3 Lymph % (Auto) (13.4-35.0) % [place] % (Auto) (0.0-7.3) % Eos % (Auto) (0.0-4.3) % Baso % (Auto) (0.0-1.8) % Lymph # (Auto) (1.2-5.4) K/mm3 [place] # (Auto) (0.0-0.8) K/mm3 Eos # (Auto) (0.0-0.4) K/mm3 Baso # (Auto) (0.0-0.1) K/mm3 Seg Neutrophils % (40.0-70.0) % Seg Neutrophils # (1.8-7.7) K/mm3 Sodium 136 L (137-145) mmol/L Potassium 4.1 (3.6-5.0) mmol/L Chloride 97.2 L (98-107) mmol/L Carbon Dioxide 26 (22-30) mmol/L Anion Gap 17 mmol/L BUN 13 (9-20) mg/dL Creatinine 1.0 (0.8-1.3) mg/dL Estimated GFR > 60 ml/min BUN/Creatinine Ratio 13 % Glucose 170 H (75-100) mg/dL Calcium 9.4 (8.4-10.2) mg/dL Salicylates < 0.3 L (2.8-20.0) mg/dL Acetaminophen 5.0 L (10.0-30.0) ug/mL Plasma/Serum Alcohol (0-0.07) % 08/02/20 08/02/20 Range/Units 09:32 09:32 WBC 9.8 (4.5-11.0) K/mm3 RBC 5.05 H (3.65-5.03) M/mm3 Hgb 14.8 (11.8-15.2) gm/dl Hct 42.8 (35.5-45.6) % MCV 85 (84-94) fl MCH 29 (28-32) pg MCHC 35 H (32-34) % RDW 15.6 H (13.2-15.2) % Plt Count 212 (140-440) K/mm3 Lymph % (Auto) 30.8 (13.4-35.0) % [place] % (Auto) 7.7 H (0.0-7.3) % Eos % (Auto) 2.7 (0.0-4.3) % Baso % (Auto) 0.6 (0.0-1.8) % Lymph # (Auto) 3.0 (1.2-5.4) K/mm3 [place] # (Auto) 0.8 (0.0-0.8) K/mm3 Eos # (Auto) 0.3 (0.0-0.4) K/mm3 Baso # (Auto) 0.1 (0.0-0.1) K/mm3 Seg Neutrophils % 58.2 (40.0-70.0) % Seg Neutrophils # 5.7 (1.8-7.7) K/mm3 Sodium (137-145) mmol/L Potassium (3.6-5.0) mmol/L Chloride (98-107) mmol/L Carbon Dioxide (22-30) mmol/L Anion Gap mmol/L BUN (9-20) mg/dL Creatinine (0.8-1.3) mg/dL Estimated GFR ml/min BUN/Creatinine Ratio % Glucose (75-100) mg/dL Calcium (8.4-10.2) mg/dL Salicylates (2.8-20.0) mg/dL Acetaminophen (10.0-30.0) ug/mL Plasma/Serum Alcohol < 0.01 (0-0.07) % Vital Signs 08/02/20 08/02/20 09:17 11:08 Temperature 97.9 F Pulse Rate 97 H Respiratory 18 18 Rate Blood Pressure 161/107 O2 Sat by Pulse 96 Oximetry Critical care attestation.: If time is entered above; I have spent that time in minutes in the direct care of this critically ill patient, excluding procedure time. ED Disposition Clinical Impression: Bipolar 1 disorder, depressed Disposition: DC/TX-65 PSY HOSP/PSY UNIT Is pt being admited?: Yes Condition: Stable Referrals: PRIMARY CARE, [Primary Care Provider] - 3-5 Days
[2020-08-02 10:07] LABS: BUN/Creatinine Ratio 13; Blood Urea Nitrogen 13 mg/dL (9-20); Calcium 9.4 mg/dL (8.4-10.2); Hemolysis Index 5
[2020-08-02] MEDS ORDERED: ALPRAZolam 1 MG TAB PO PRN (12:42)
[2020-08-02 21:19] LABS: Bilirubin,Urine NEG (Negative); Blood,Urine NEG (Negative); Color,Urine Yellow (Yellow); WBC,Urine < 1.0 /HPF (0.0-6.0)
[2020-08-02 21:28] LABS: Amphetamine Screen,Urine Negative; Benzodiazepines Screen,Urine Negative; Cannabinoid Screen,Urine Negative; Methadone Screen,Urine Negative; Opiate Screen,Urine Negative
[2020-08-02 21:48] LABS: Cocaine Screen,Urine Positive
[2020-08-02] MEDS ORDERED: NON-FORMULARY EACH (Alprazolam [Xanax Tab] 2 MG Tablet) PO SCH (22:00)
[2020-08-02] MEDS ORDERED: LANTUS 40 UNIT SQ SCH (22:00)
[2020-08-02] MEDS ORDERED: INSULIN GLARGINE 100 UNITS/ML SUB-Q SCH (22:00)
[2020-08-02] MEDS ORDERED: CLONIDINE 0.3 MG PO SCH (22:00)
[2020-08-02] MEDS ORDERED: QUEtiapine 200 MG TAB PO SCH (22:00)
[2020-08-02] MEDS: GABAPENTIN 300 MG CAP PO SCH (22:31)
[2020-08-02] MEDS: cloNIDine 0.1 MG TAB PO SCH (22:31)
[2020-08-02] MEDS: oxyCODONE 5 MG TAB PO PRN (22:35)
[2020-08-03] MEDS ORDERED: QUEtiapine 25 MG TAB PO SCH (08:00)
[2020-08-03] MEDS: oxyCODONE 5 MG TAB PO PRN ×2 (08:22→14:30)
--- NOTE | 2020-08-03 09:10 | Consultation ---
History of Present Illness - Reason for Consult Consult date: 08/03/20 Reason for consult: HI/SI, hallucinations - History of Present Psychiatric Illness Per ER Note: "Patient is a 54-year-old male presents emergency department for what he describes as exacerbation of bipolar disorder. Patient states he is having suicidal thoughts, would like to shoot himself with a handgun, denies having his own gun. Patient denies homicidal ideation." Prakash Juarez is a 54y/o male patient who presented to the ER for depression, hearing voices and SI/HI. He says "I'm not doing good." The patient says voices are telling him things about his step father. He then starts talking about his past roommates. The patient says he "wants to shoot both of them, and to keep from going to snf I'm gone shoot myself." The patient also states his mom just passed and he's having a lot of stress from that. He says he's angry with everybody, and gets into it with people at grocery stores and around. He only admits to using THC, although his urine is positive for cocaine. PAST PSYCHIATRIC HISTORY Diagnoses: Bipolar Suicide attempts or Self-harm behavior: Yes Prior psychiatric hospitalizations: Yes Substance Abuse history: THC, cocaine Previous psychiatric medications tried: Seroquel, xanax Outpatient treatment: Yes PAST MEDICAL HISTORY: None reported Family Psychiatric History: None reported or documented SOCIAL HISTORY Marital Status: Living Arrangements: alone Employment Status: Unemployed Access to guns/weapons: Denies Education: high school History of Abuse: Unknown Legal History: None reported REVIEW OF SYSTEMS Constitutional: Negative for weight loss ENT: Negative for stridor Respiratory: Negative for cough or hemoptysis All other systems reviewed and are negative MENTAL STATUS EXAMINATION General Appearance and Behavior: Age appropriate, good hygiene, not wearing appropriate clothes, good eye contact, cooperative with questioning. Cooperation: Participating/engaged Psychomotor Behavior: Psychomotor normal Mood: "not good" Affect and affective range: restricted, irritable Thought Process: Circumstantial, Illogical, Thought Content: SI/HI, hallucinations Speech: normal tone and pace Suicidal Ideation: Yes Homicidal Ideation: Yes Hallucinations: Auditory Delusions: None elicited Impulse Control: Impaired Insight and Judgment: Limited insight and judgment Memory: Limited Attention: Limited Orientation: Alert, oriented Assessment and Plan (1) Bipolar Disorder Current Visit: Yes Status: Acute (2) Cocaine Dependence Current Visit: Yes Status: Acute Treatment Plan Increased day seroquel 100mg po daily Risks, benefits and alternatives of medications discussed with the patient, questions answered and consent obtained from patient. PSYCHOTHERAPY: Supportive psychotherapy provided MEDICAL: Per primary team DELIRIUM PRECAUTIONS: Please re-orient patient frequently, keep lights on during the day, and minimize benzodiazepines and opiates as these medications could worsen patient's confusion. FUND ACCOUNTING MANAGER: Defer to primary DISPOSITION: Recommend acute inpatient psychiatric hospitalization at this time. LEGAL STATUS: 1013 FOLLOW-UP: Will follow Thank you for the consult. Please contact with any questions and/or concerns. Case discussed with Dr. Hall who agrees with current disposition Medications and Allergies Allergies Allergy/AdvReac Type Severity Reaction Status Date / Time trazodone Allergy Severe Priapism Verified 08/02/20 09:16 chlorpromazine HCl Allergy Hives Verified 08/02/20 09:16 [From Thorazine] haloperidol [From Haldol] Allergy Hives Verified 08/02/20 09:16 haloperidol lactate Allergy Hives Verified 08/02/20 09:16 [From Haldol] ziprasidone HCl [From Geodon] Allergy Hives Verified 08/02/20 09:16 ziprasidone mesylate Allergy Hives Verified 08/02/20 09:16 [From Geodon] Home Medications Medication Instructions Recorded Confirmed Last Taken Type oxyCODONE [roxiCODONE] 10 mg PO Q6H PRN #14 tablet 03/09/19 08/02/20 Unknown Rx Aspirin 325 mg PO QDAY #30 tablet 03/18/19 08/02/20 08/02/20 Rx QUEtiapine [SEROquel] 50 mg PO BIDBL #120 tablet 03/18/19 08/02/20 08/01/20 Rx QUEtiapine [SEROquel] 200 mg PO HS #30 tablet 03/18/19 08/02/20 08/01/20 Rx cloNIDine 0.3 mg PO BID #60 03/18/19 08/02/20 08/01/20 Rx ALPRAZolam [Xanax TAB] 2 mg PO DAILY 08/02/20 08/02/20 08/01/20 History Gabapentin [Neurontin] 300 mg PO BID 08/02/20 08/02/20 Unknown History Insulin Aspart [Insulin Aspart 5 unit SQ TID 08/02/20 08/02/20 Unknown History Flexpen] Lantus VIAL 40 units SQ HS 08/02/20 08/02/20 08/01/20 History Losartan/Hydrochlorothiazide 1 each PO DAILY 08/02/20 08/02/20 Unknown History [Losartan-Hctz 100-25 mg Tab] Active Meds: Active Medications Alprazolam (Alprazolam 1 Mg Tab) 1 mg PO Q6H PRN PRN Reason: Agitation Last Admin: 08/02/20 13:10 Dose: 1 mg Documented by: Alprazolam (Alprazolam 1 Mg Tab) 2 mg PO DAILY [facility] Aspirin (Aspirin 325 Mg Tab) 325 mg PO QDAY [facility] Clonidine HCl (Clonidine 0.1 Mg Tab) 0.3 mg PO BID [facility] Last Admin: 08/02/20 22:31 Dose: 0.3 mg Documented by: Gabapentin (Gabapentin 300 Mg Cap) 300 mg PO BID [facility] Last Admin: 08/02/20 22:31 Dose: 300 mg Documented by: Hydrochlorothiazide (Hydrochlorothiazide 25 Mg Tab) 25 mg PO DAILY [facility] Insulin Glargine (Insulin Glargine 100 Units/Ml) 40 units SUB-Q QHS [facility] Last Admin: 08/02/20 22:36 Dose: 40 units Documented by: Losartan Potassium (Losartan 50 Mg Tab) 100 mg PO DAILY [facility] Oxycodone HCl (Oxycodone 5 Mg Tab) 10 mg PO Q6H PRN PRN Reason: Pain, Moderate (4-6) Last Admin: 08/03/20 08:22 Dose: 10 mg Documented by: Quetiapine [facility] ([facility] 25 Mg Tab) [facility] Last Admin: 08/03/20 08:16 Dose: 50 mg Documented by: Quetiapine Fumarate (Quetiapine 200 Mg Tab) 200 mg PO [facility] Last Admin: 08/02/20 22:31 Dose: 200 mg Documented by: Mental Status Exam - Vital signs Last Vital Signs Temp 98.0 F 08/03/20 05:13 Pulse 88 08/03/20 05:13 Resp 18 08/03/20 05:13 BP 117/63 08/03/20 05:13 Pulse Ox 99 08/03/20 05:13 Results Result Diagrams: 08/02/20 09:32 08/02/20 09:32 Abnormal lab results 08/02/20 08/02/20 08/02/20 Range/Units 09:32 09:32 09:32 RBC (3.65-5.03) M/mm3 MCHC (32-34) % RDW (13.2-15.2) % [place] % (Auto) (0.0-7.3) % Sodium 136 L (137-145) mmol/L Chloride 97.2 L (98-107) mmol/L Glucose 170 H (75-100) mg/dL POC Glucose (70-105) mg/dL Salicylates < 0.3 L (2.8-20.0) mg/dL Acetaminophen 5.0 L (10.0-30.0) ug/mL 08/02/20 08/02/20 Range/Units 09:32 22:18 RBC 5.05 H (3.65-5.03) M/mm3 MCHC 35 H (32-34) % RDW 15.6 H (13.2-15.2) % [place] % (Auto) 7.7 H (0.0-7.3) % Sodium (137-145) mmol/L Chloride (98-107) mmol/L Glucose (75-100) mg/dL POC Glucose 263 H (70-105) mg/dL Salicylates (2.8-20.0) mg/dL Acetaminophen (10.0-30.0) ug/mL All other labs normal.
[2020-08-03] MEDS: GABAPENTIN 300 MG CAP PO SCH (09:57)
[2020-08-03] MEDS: cloNIDine 0.1 MG TAB PO SCH (09:58)
[2020-08-03 10:00] VITALS: BP 134/97
[2020-08-03] MEDS ORDERED: ASPIRIN 325 MG TAB PO SCH (10:00)
[2020-08-03] MEDS ORDERED: NON-FORMULARY EACH (Losartan/Hydrochlorothiazide [Losartan-Hctz 100-25 Mg Tab] 1 EACH Tabl PO SCH (10:00)
[2020-08-03] MEDS ORDERED: ALPRAZolam 1 MG TAB PO SCH (10:00)
[2020-08-03] MEDS ORDERED: QUEtiapine 100 MG TAB PO SCH (10:00)
[2020-08-03] MEDS ORDERED: LOSARTAN 50 MG TAB PO SCH (10:00)
[2020-08-03] MEDS ORDERED: hydroCHLOROthiazide 25 MG TAB PO SCH (10:00)
== END 2020-08-03 17:43 ==
LOC: ED 09:11
DX: F31.9 Bipolar disorder, unspecified (principal); I10 Essential (primary) hypertension; E11.9 Type 2 diabetes mellitus without complications; F12.10 Cannabis abuse, uncomplicated; Z98.890 Other specified postprocedural states; Z79.899 Other long term (current) drug therapy; Z88.8 Allergy status to other drugs, medicaments and biological substances
CPT/HCPCS: 36415; 80048; 80307; 81001; 82962; 85025; 99285; U0003; 80320; G0480; J1815

== ENCOUNTER 2020-08-03 14:05 | Inpatient (IN) | payer MEDICARE ==
[2020-08-03 19:37] LABS: Chol/HDL Ratio 3.97 %
[2020-08-03] MEDS: GABAPENTIN 300 MG CAP PO SCH (21:45)
[2020-08-03] MEDS: INSULIN GLARGINE 100 UNITS/ML SUB-Q SCH (21:46)
[2020-08-03] MEDS ORDERED: QUEtiapine 200 MG TAB PO SCH (22:00)
--- NOTE | 2020-08-04 08:13 | History and Physical Report ---
GP History & Physical - History of Present Illness Date of admission: 08/03/20 Date of Examination: 08/04/20 Reason for Admission: Danger to self, Danger to others, Failure of Outpatient Treatment, Severe anxiety/depression History of Present Illness: Per ER Note: "Patient is a 54-year-old male presents emergency department for what he describes as exacerbation of bipolar disorder. Patient states he is having suicidal thoughts, would like to shoot himself with a handgun, denies having his own gun. Patient denies homicidal ideation." Prakash Juarez is a 54y/o male patient who presented to the ER for depression, h earing voices and SI/HI. I initially rounded on the patient in the ER prior to his micah-psych admission. At that time the patient says voices were telling him things about his step father. He then starts talking about his past roommates. The patient says he "wants to shoot both of them, and to keep from going to care home I'm gone shoot myself." The patient also stated his mom just passed and he's having a lot of stress from that. He says he's angry with everybody, and gets into it with people at grocery stores and around. He only admits to using THC, although his urine is positive for cocaine. This morning during my interview, the patient is sitting in the dayroom. He says he's doing "alright." When asked if he was suicidal, he states "I can't answer that." He verbalizes still hearing voices about his step father PAST PSYCHIATRIC HISTORY Diagnoses: Bipolar Suicide attempts or Self-harm behavior: Yes Prior psychiatric hospitalizations: Yes Substance Abuse history: THC, cocaine Previous psychiatric medications tried: Seroquel, xanax Outpatient treatment: Yes PAST MEDICAL HISTORY: None reported Family Psychiatric History: None reported or documented SOCIAL HISTORY Marital Status: Living Arrangements: alone Employment Status: Unemployed Access to guns/weapons: Denies Education: high school History of Abuse: Unknown Legal History: None reported REVIEW OF SYSTEMS Constitutional: Negative for weight loss ENT: Negative for stridor Respiratory: Negative for cough or hemoptysis All other systems reviewed and are negative MENTAL STATUS EXAMINATION General Appearance and Behavior: Age appropriate, good hygiene, not wearing appropriate clothes, good eye contact, cooperative with questioning. Cooperation: Participating/engaged Psychomotor Behavior: Psychomotor normal Mood: "not good" Affect and affective range: restricted, irritable Thought Process: Circumstantial, Illogical, Thought Content: SI/HI, hallucinations Speech: normal tone and pace Suicidal Ideation: Yes Homicidal Ideation: Yes Hallucinations: Auditory Delusions: None elicited Impulse Control: Impaired Insight and Judgment: Limited insight and judgment Memory: Limited Attention: Limited Orientation: Alert, oriented Assessment and Plan (1) Bipolar Disorder Current Visit: Yes Status: Acute Treatment Plan Patient admitted for inpatient psychiatric evaluation, medication adjustment and close monitoring The patient's behavior, mood, sleep and appetite will be closely monitored. Patient enrolled in individual and group therapeutic sessions and encouraged to attend. Patient provided with a safe and structured environment. Patient's physical health needs will be addressed by the Hospitalist. Hospitalist Consulted Labs including CBC, CMP, Lipid profile and Hemoglobin A1C levels ordered for baseline reference Social Assessment will be completed and the Matting Press Tender will work with patient and family to ensure a suitable and safe disposition Medication adjustment will be made as clinically indicated Restarted medications Changed daytime Seroquel 50mg po daily Usual Wellness Jew/Preservation: - Start Trazodone 50 mg po QHS & 50 mg po QHS PRN between 10 PM & 2 AM for insomnia - Start Melatonin 5 mg po QHS to promote circadian rhythm - Start [place]-3 for brain health, reduce impulsivity, and as adjunctive treatment for mood disorder, continue upon discharge given overall benefits. - Start B1 prophylaxis with 200 mg po for 5 days The patient agreed on the treatment plan, understood the risk, benefit, alternative treatment, potential consequence of no treatment, and gave informed consent. Estimated days: 3 Post hospital care: primary care provider, psychiatric provider Legal Status: Voluntary Reaction to Hospitalization: Accepting Medications and Allergies Allergies Allergy/AdvReac Type Severity Reaction Status Date / Time trazodone Allergy Severe Priapism Verified 08/02/20 09:16 chlorpromazine HCl Allergy Hives Verified 08/02/20 09:16 [From Thorazine] haloperidol [From Haldol] Allergy Hives Verified 08/02/20 09:16 haloperidol lactate Allergy Hives Verified 08/02/20 09:16 [From Haldol] ziprasidone HCl [From Geodon] Allergy Hives Verified 08/02/20 09:16 ziprasidone mesylate Allergy Hives Verified 08/02/20 09:16 [From Geodon] Home Medications Medication Instructions Recorded Confirmed Last Taken Type oxyCODONE [roxiCODONE] 10 mg PO Q6H PRN #14 tablet 03/09/19 08/03/20 08/02/20 22:00 Rx Aspirin 325 mg PO QDAY #30 tablet 03/18/19 08/03/20 08/03/20 10:00 Rx QUEtiapine [SEROquel] 50 mg PO BIDBL #120 tablet 03/18/19 08/03/20 08/02/20 22:00 Rx QUEtiapine [SEROquel] 200 mg PO HS #30 tablet 03/18/19 08/03/20 08/02/20 22:00 Rx cloNIDine 0.3 mg PO BID #60 03/18/19 08/03/20 08/03/20 10:00 Rx ALPRAZolam [Xanax TAB] 2 mg PO DAILY 08/02/20 08/03/20 08/02/20 History Gabapentin [Neurontin] 300 mg PO BID 08/02/20 08/03/20 08/02/20 22:00 History Insulin Aspart [Insulin Aspart 5 unit SQ TID 08/02/20 08/03/20 Unknown History Flexpen] Lantus VIAL 40 units SQ HS 08/02/20 08/03/20 08/02/20 22:00 History Losartan/Hydrochlorothiazide 1 each PO DAILY 08/02/20 08/03/20 08/03/20 10:00 History [Losartan-Hctz 100-25 mg Tab] Active Meds: Active Medications Gabapentin (Gabapentin 300 Mg Cap) 300 mg PO BID [facility] Last Admin: 08/03/20 21:45 Dose: 300 mg Documented by: Insulin Glargine (Insulin Glargine 100 Units/Ml) 40 units SUB-Q QHS [facility] Last Admin: 08/03/20 21:46 Dose: 40 units Documented by: Quetiapine Fumarate (Quetiapine 200 Mg Tab) 200 mg PO QHS [facility] Last Admin: 08/03/20 21:46 Dose: 200 mg Documented by: Results - Results Labs/Vitals: Laboratory Last Values POC Glucose 222 mg/dL (70-105) H 08/03/20 20:17 Hemoglobin A1c 9.2 % (4-6) H 08/03/20 18:54 Triglycerides 194 mg/dL (2-149) H 08/03/20 16:03 Cholesterol 143 mg/dL (50-199) 08/03/20 16:03 LDL Cholesterol Direct 96 mg/dL (50-130) 08/03/20 16:03 HDL Cholesterol 36 mg/dL (40-59) L 08/03/20 16:03 Cholesterol/HDL Ratio 3.97 % 08/03/20 16:03 TSH 5.430 mlU/mL (0.270-4.200) H 08/03/20 16:03 Last Vital Signs Temp 97.9 F 08/03/20 22:00 Pulse 77 08/03/20 22:00 Resp 18 08/03/20 22:00 BP 123/86 08/03/20 22:00 Pulse Ox 95 08/03/20 22:00 Physical Examination - Constitutional Vitals: Vital Signs Temp Pulse Resp BP Pulse Ox 97.9 F 77 18 123/86 95 08/03/20 22:00 08/03/20 22:00 08/03/20 22:00 08/03/20 22:00 08/03/20 22:00 Temperature -Last 24 Hours Temperature 97.9 F Temperature 97.9 F Mental Status Exam - Vital signs Last Vital Signs Temp 97.9 F 08/03/20 22:00 Pulse 77 08/03/20 22:00 Resp 18 08/03/20 22:00 BP 123/86 08/03/20 22:00 Pulse Ox 95 08/03/20 22:00 Physician Certification - Certification Statement Physician Certification Statement: This is an acknowledgement statement that PRAKASH JUAREZ is a 54 year old M who requires inpatient psychiatric admission for treatment which could reasonably be expected to improve the patient's condition for Estimated period of time patient will need to remain in the hospital: [ ] Plan for post-hospital care: [ ]
[2020-08-04] MEDS ORDERED: NON-FORMULARY EACH (Losartan/Hydrochlorothiazide [Losartan-Hctz 100-25 Mg Tab] 1 EACH Tabl PO SCH (10:00)
[2020-08-04] MEDS: ASPIRIN 325 MG TAB PO SCH (10:22)
[2020-08-04] MEDS: cloNIDine 0.1 MG TAB PO SCH ×2 (10:22→21:52)
[2020-08-04] MEDS: GABAPENTIN 300 MG CAP PO SCH ×2 (10:24→21:52)
[2020-08-04] MEDS: hydroCHLOROthiazide 25 MG TAB PO SCH (10:24)
[2020-08-04] MEDS: ALPRAZolam 1 MG TAB PO SCH (10:25)
[2020-08-04] MEDS: QUEtiapine 25 MG TAB PO SCH (10:25)
[2020-08-04] MEDS: LOSARTAN 50 MG TAB PO SCH (10:26)
[2020-08-04] MEDS: oxyCODONE 5 MG TAB PO PRN ×3 (11:34→23:35)
--- NOTE | 2020-08-04 12:30 | Consultation ---
History of Present Illness - Reason for Consult Consult date: 08/04/20 Management of medical conditions - History of Present Illness Patient is a 53-year-old -[place] male admitted for acute psychotic disorder and a medical consultation was requested to manage his medical conditions. He is awake and alert, moderately psychotic but responds fairly well to questions. At this time he offers no specific complaints. Past History Past Medical History: diabetes, hypertension, hyperlipidemia Past Surgical History: No surgical history Social history: no significant social history Family history: diabetes, hypertension Medications and Allergies Allergies Allergy/AdvReac Type Severity Reaction Status Date / Time trazodone Allergy Severe Priapism Verified 08/02/20 09:16 chlorpromazine HCl Allergy Hives Verified 08/02/20 09:16 [From Thorazine] haloperidol [From Haldol] Allergy Hives Verified 08/02/20 09:16 haloperidol lactate Allergy Hives Verified 08/02/20 09:16 [From Haldol] ziprasidone HCl [From Geodon] Allergy Hives Verified 08/02/20 09:16 ziprasidone mesylate Allergy Hives Verified 08/02/20 09:16 [From Geodon] Home Medications Medication Instructions Recorded Confirmed Last Taken Type oxyCODONE [roxiCODONE] 10 mg PO Q6H PRN #14 tablet 03/09/19 08/03/20 08/02/20 22:00 Rx Aspirin 325 mg PO QDAY #30 tablet 03/18/19 08/03/20 08/03/20 10:00 Rx QUEtiapine [SEROquel] 50 mg PO BIDBL #120 tablet 03/18/19 08/03/20 08/02/20 22:00 Rx QUEtiapine [SEROquel] 200 mg PO HS #30 tablet 03/18/19 08/03/20 08/02/20 22:00 Rx cloNIDine 0.3 mg PO BID #60 03/18/19 08/03/20 08/03/20 10:00 Rx ALPRAZolam [Xanax TAB] 2 mg PO DAILY 08/02/20 08/03/20 08/02/20 History Gabapentin [Neurontin] 300 mg PO BID 08/02/20 08/03/20 08/02/20 22:00 History Insulin Aspart [Insulin Aspart 5 unit SQ TID 08/02/20 08/03/20 Unknown History Flexpen] Lantus VIAL 40 units SQ 08/02/20 08/03/20 08/02/20 22:00 History Losartan/Hydrochlorothiazide 1 each PO DAILY 08/02/20 08/03/20 08/03/20 10:00 History [Losartan-Hctz 100-25 mg Tab] Active Meds: Active Medications Alprazolam (Alprazolam 1 Mg Tab) 2 mg PO DAILY [facility] Last Admin: 08/04/20 10:25 Dose: 2 mg Documented by: Aspirin (Aspirin 325 Mg Tab) 325 mg PO QDAY [facility] Last Admin: 08/04/20 10:22 Dose: 325 mg Documented by: Clonidine HCl (Clonidine 0.1 Mg Tab) 0.3 mg PO BID [facility] Last Admin: 08/04/20 10:22 Dose: 0.3 mg Documented by: Gabapentin (Gabapentin 300 Mg Cap) 300 mg PO BID [facility] Last Admin: 08/04/20 10:24 Dose: 300 mg Documented by: Hydrochlorothiazide (Hydrochlorothiazide 25 Mg Tab) 25 mg PO QDAY [facility] Last Admin: 08/04/20 10:24 Dose: 25 mg Documented by: Insulin Glargine (Insulin Glargine 100 Units/Ml) [facility] Last Admin: 08/03/20 21:46 Dose: 40 units Documented by: Insulin Human Lispro (Insulin Lispro 100 Unit/Ml) 5 unit SUB-Q [facility] Losartan Potassium (Losartan 50 Mg Tab) 100 mg PO QDAY [facility] Last Admin: 08/04/20 10:26 Dose: 100 mg Documented by: Oxycodone HCl (Oxycodone 5 Mg Tab) 10 mg PO Q6H PRN PRN Reason: Pain, Moderate (4-6) Last Admin: 08/04/20 11:34 Dose: 10 mg Documented by: Quetiapine Fumarate (Quetiapine 200 Mg Tab) 200 mg PO [facility] Quetiapine Fumarate (Quetiapine 25 Mg Tab) 50 mg PO DAILY [facility] Last Admin: 08/04/20 10:25 Dose: 50 mg Documented by: Review of Systems Constitutional: no weight loss, no weakness Ears, nose, mouth and throat: no ear pain, no sore throat, no headache Cardiovascular: no chest pain, no palpitations, no syncope Respiratory: no cough, no shortness of breath Gastrointestinal: no abdominal pain, no nausea, no vomiting, no diarrhea, no constipation Genitourinary Male: no dysuria, no urinary frequency, no incontinence Rectal: no pain Musculoskeletal: no low back pain, no muscle weakness Integumentary: no rash, no pruritis Neurological: no seizures, no headaches Exam - Constitutional Vitals: Temp Pulse Resp BP Pulse Ox 97.7 F 84 20 114/81 96 08/04/20 09:30 08/04/20 09:30 08/04/20 09:30 08/04/20 09:30 08/04/20 09:30 General appearance: Present: no acute distress, well-nourished - EENT Eyes: Present: PERRL, EOM intact ENT: hearing intact, clear oral mucosa, no thrush - Neck Neck: Present: supple, normal ROM - Respiratory Respiratory effort: normal Respiratory: bilateral: CTA - Cardiovascular Rhythm: regular Heart Sounds: Present: S1 & S2 - Extremities Extremities: No edema - Abdominal General gastrointestinal: Present: soft, non-tender Male genitourinary: Present: deferred - Rectal Rectal Exam: deferred - Integumentary Integumentary: Present: clear - Musculoskeletal Musculoskeletal: strength equal bilaterally - Neurologic Neurologic: no focal deficits Results - Labs Labs: Abnormal lab results 08/03/20 08/03/20 08/03/20 Range/Units 16:03 16:03 18:54 POC Glucose (70-105) mg/dL Hemoglobin A1c 9.2 H (4-6) % Triglycerides 194 H (2-149) mg/dL HDL Cholesterol 36 L (40-59) mg/dL TSH 5.430 H (0.270-4.200) mlU/mL 08/03/20 08/04/20 Range/Units 20:17 12:10 POC Glucose 222 H 153 H (70-105) mg/dL Hemoglobin A1c (4-6) % Triglycerides (2-149) mg/dL HDL Cholesterol (40-59) mg/dL TSH (0.270-4.200) mlU/mL Assessment and Plan - Patient Problems (1) Hypertension Current Visit: Yes Status: Chronic Qualifiers: Hypertension type: essential hypertension Qualified Code(s): I10 - Essential (primary) hypertension Plan to address problem: Continue home medications BP well controlled (2) Type 2 diabetes mellitus Current Visit: Yes Status: Chronic Qualifiers: Diabetes mellitus salvage determiner insulin use: without salvage determiner use Plan to address problem: A1c 9.2 Initiate insulin sliding scale coverage Continue home medications (3) Dyslipidemia Current Visit: Yes Status: Chronic Plan to address problem: Mildly elevated triglycerides with low HDL We will monitor for now (4) Bipolar 1 disorder, depressed Current Visit: No Status: Acute Plan to address problem: Managed per psychiatry recommendations
[2020-08-04] MEDS ORDERED: NON-FORMULARY EACH (Insulin Aspart [Insulin Aspart Flexpen] 100 UNIT/ML Insuln.Pen) SQ SCH (14:00)
[2020-08-04] MEDS: INSULIN LISPRO 100 UNIT/ML SUB-Q SCH ×2 (14:07→17:13)
[2020-08-04] MEDS: INSULIN GLARGINE 100 UNITS/ML SUB-Q SCH (21:06)
[2020-08-04] MEDS: QUEtiapine 200 MG TAB PO SCH (21:52)
[2020-08-05 05:38] LABS: Hematocrit 36.1 % (35.5-45.6); Hemoglobin 12.3 gm/dl (11.8-15.2); Mean Corpuscular HGB Conc 34 % (32-34); Mean Corpuscular Volume 86 fl (84-94); Platelet Count 199 K/mm3 (140-440); Red Blood Count 4.21 M/mm3 (3.65-5.03); Red Cell Distribution Width 15.2 % (13.2-15.2)
[2020-08-05 06:00] LABS: BUN/Creatinine Ratio 13; Blood Urea Nitrogen 14 mg/dL (9-20); Calcium 8.8 mg/dL (8.4-10.2); Hemolysis Index 3
[2020-08-05] MEDS: INSULIN LISPRO 100 UNIT/ML SUB-Q SCH ×3 (08:49→16:41)
[2020-08-05] MEDS: LOSARTAN 50 MG TAB PO SCH (09:13)
[2020-08-05] MEDS: ASPIRIN 325 MG TAB PO SCH (09:13)
[2020-08-05] MEDS: GABAPENTIN 300 MG CAP PO SCH ×2 (09:14→21:29)
[2020-08-05] MEDS: hydroCHLOROthiazide 25 MG TAB PO SCH (09:14)
[2020-08-05] MEDS: QUEtiapine 25 MG TAB PO SCH (09:15)
[2020-08-05] MEDS: ALPRAZolam 1 MG TAB PO SCH (09:15)
[2020-08-05] MEDS: oxyCODONE 5 MG TAB PO PRN ×3 (09:15→21:44)
[2020-08-05] MEDS: cloNIDine 0.1 MG TAB PO SCH ×2 (09:26→21:30)
--- NOTE | 2020-08-05 10:12 | Progress Note ---
Subjective Date of service: 08/05/20 Principal diagnosis: Bipolar Disorder Subjective Comment: The patient was seen today, he is walking the flowers. He says he's "not doing too good, because of his anger issues from his Bipolar." The patient says he's still suicidal "a little" but trying to deal with his mother's . He denies hallucinations. The patient says overall he's getting better. REVIEW OF SYSTEMS Constitutional: Negative for weight loss ENT: Negative for stridor Respiratory: Negative for cough or hemoptysis All other systems reviewed and are negative MENTAL STATUS EXAMINATION General Appearance and Behavior: Age appropriate, good hygiene, not wearing appropriate clothes, good eye contact, cooperative with questioning. Cooperation: Participating/engaged Psychomotor Behavior: Psychomotor normal Mood: "not good" Affect and affective range: restricted, irritable Thought Process: Circumstantial, Illogical, Thought Content: SI/HI, hallucinations Speech: normal tone and pace Suicidal Ideation: Yes Homicidal Ideation: Yes Hallucinations: Auditory Delusions: None elicited Impulse Control: Impaired Insight and Judgment: Limited insight and judgment Memory: Limited Attention: Limited Orientation: Alert, oriented Assessment and Plan (1) Bipolar Disorder Current Visit: Yes Status: Acute Treatment Plan Patient admitted for inpatient psychiatric evaluation, medication adjustment and close monitoring The patient's behavior, mood, sleep and appetite will be closely monitored. Patient enrolled in individual and group therapeutic sessions and encouraged to attend. Patient provided with a safe and structured environment. Patient's physical health needs will be addressed by the Hospitalist. Hospitalist Consulted Labs including CBC, CMP, Lipid profile and Hemoglobin A1C levels ordered for baseline reference Social Assessment will be completed and the Director Business Systems will work with patient and family to ensure a suitable and safe disposition Medication adjustment will be made as clinically indicated Changed daytime Seroquel 50mg po daily yesterday No changes today Usual Wellness Confucianist/Preservation: - Start Trazodone 50 mg po QHS & 50 mg po QHS PRN between 10 PM & 2 AM for insomnia - Start Melatonin 5 mg po QHS to promote circadian rhythm - Start [employer]-3 for brain health, reduce impulsivity, and as adjunctive treatment for mood disorder, continue upon discharge given overall benefits. - Start B1 prophylaxis with 200 mg po for 5 days The patient agreed on the treatment plan, understood the risk, benefit, alternative treatment, potential consequence of no treatment, and gave informed consent. Estimated days: 3 Post hospital care: primary care provider, psychiatric provider Case staffed with Dr. Hall. Medications and Allergies Allergies Allergy/AdvReac Type Severity Reaction Status Date / Time trazodone Allergy Severe Priapism Verified 08/02/20 09:16 chlorpromazine HCl Allergy Hives Verified 08/02/20 09:16 [From Thorazine] haloperidol [From Haldol] Allergy Hives Verified 08/02/20 09:16 haloperidol lactate Allergy Hives Verified 08/02/20 09:16 [From Haldol] ziprasidone HCl [From Geodon] Allergy Hives Verified 08/02/20 09:16 ziprasidone mesylate Allergy Hives Verified 08/02/20 09:16 [From Geodon] Home Medications Medication Instructions Recorded Confirmed Last Taken Type oxyCODONE [roxiCODONE] 10 mg PO Q6H PRN #14 tablet 03/09/19 08/03/20 08/02/20 22:00 Rx Aspirin 325 mg PO QDAY #30 tablet 03/18/19 08/03/20 08/03/20 10:00 Rx QUEtiapine [SEROquel] 50 mg PO BIDBL #120 tablet 03/18/19 08/03/20 08/02/20 22:00 Rx QUEtiapine [SEROquel] 200 mg PO HS #30 tablet 03/18/19 08/03/20 08/02/20 22:00 Rx cloNIDine 0.3 mg PO BID #60 03/18/19 08/03/20 08/03/20 10:00 Rx ALPRAZolam [Xanax TAB] 2 mg PO DAILY 08/02/20 08/03/20 08/02/20 History Gabapentin [Neurontin] 300 mg PO BID 08/02/20 08/03/20 08/02/20 22:00 History Insulin Aspart [Insulin Aspart 5 unit SQ TID 08/02/20 08/03/20 Unknown History Flexpen] Lantus VIAL 40 units SQ HS 08/02/20 08/03/20 08/02/20 22:00 History Losartan/Hydrochlorothiazide 1 each PO DAILY 08/02/20 08/03/20 08/03/20 10:00 History [Losartan-Hctz 100-25 mg Tab] Active Meds: Active Medications Alprazolam (Alprazolam 1 Mg Tab) 2 mg PO DAILY [facility] Last Admin: 08/05/20 09:15 Dose: 2 mg Documented by: Aspirin (Aspirin 325 Mg Tab) 325 mg PO QDAY [facility] Last Admin: 08/05/20 09:13 Dose: 325 mg Documented by: Clonidine HCl (Clonidine 0.1 Mg Tab) 0.3 mg PO BID [facility] Last Admin: 08/05/20 09:26 Dose: 0.3 mg Documented by: Gabapentin (Gabapentin 300 Mg Cap) 300 mg PO BID [facility] Last Admin: 08/05/20 09:14 Dose: 300 mg Documented by: Hydrochlorothiazide (Hydrochlorothiazide 25 Mg Tab) 25 mg PO QDAY [facility] Last Admin: 08/05/20 09:14 Dose: 25 mg Documented by: Insulin Glargine (Insulin Glargine 100 Units/Ml) [facility] Last Admin: 08/04/20 21:06 Dose: 40 units Documented by: Insulin Human Lispro (Insulin Lispro 100 Unit/Ml) 5 unit SUB-Q AC [facility] Last Admin: 08/05/20 08:49 Dose: Not Given Documented by: Losartan Potassium (Losartan 50 Mg Tab) 100 mg PO QDAY [facility] Last Admin: 08/05/20 09:13 Dose: 100 mg Documented by: Oxycodone HCl (Oxycodone 5 Mg Tab) 10 mg PO Q6H PRN PRN Reason: Pain, Moderate (4-6) Last Admin: 08/05/20 09:15 Dose: 10 mg Documented by: Quetiapine Fumarate (Quetiapine 200 Mg Tab) 200 mg PO [facility] Last Admin: 08/04/20 21:52 Dose: 200 mg Documented by: Quetiapine Fumarate (Quetiapine 25 Mg Tab) 50 mg PO DAILY [facility] Last Admin: 08/05/20 09:15 Dose: 50 mg Documented by: Results - Results Labs/Vitals: Laboratory Last Values WBC 6.2 K/mm3 (4.5-11.0) 08/05/20 04:52 RBC 4.21 M/mm3 (3.65-5.03) 08/05/20 04:52 Hgb 12.3 gm/dl (11.8-15.2) 08/05/20 04:52 Hct 36.1 % (35.5-45.6) D 08/05/20 04:52 MCV 86 fl (84-94) 08/05/20 04:52 MCH 29 pg (28-32) 08/05/20 04:52 MCHC 34 % (32-34) 08/05/20 04:52 RDW 15.2 % (13.2-15.2) 08/05/20 04:52 Plt Count 199 K/mm3 (140-440) 08/05/20 04:52 Sodium 139 mmol/L (137-145) 08/05/20 04:52 Potassium 4.2 mmol/L (3.6-5.0) 08/05/20 04:52 Chloride 99.7 mmol/L (98-107) 08/05/20 04:52 Carbon Dioxide 37 mmol/L (22-30) H D 08/05/20 04:52 Anion Gap 7 mmol/L 08/05/20 04:52 BUN 14 mg/dL (9-20) 08/05/20 04:52 Creatinine 1.1 mg/dL (0.8-1.3) 08/05/20 04:52 Estimated GFR > 60 ml/min 08/05/20 04:52 BUN/Creatinine Ratio 13 % 08/05/20 04:52 Glucose 100 mg/dL (75-100) 08/05/20 04:52 POC Glucose 75 mg/dL (70-105) 08/05/20 06:07 Hemoglobin A1c 9.2 % (4-6) H 08/03/20 18:54 Calcium 8.8 mg/dL (8.4-10.2) 08/05/20 04:52 Triglycerides 194 mg/dL (2-149) H 08/03/20 16:03 Cholesterol 143 mg/dL (50-199) 08/03/20 16:03 LDL Cholesterol Direct 96 mg/dL (50-130) 08/03/20 16:03 HDL Cholesterol 36 mg/dL (40-59) L 08/03/20 16:03 Cholesterol/HDL Ratio 3.97 % 08/03/20 16:03 TSH 5.430 mlU/mL (0.270-4.200) H 08/03/20 16:03 Last Vital Signs Temp 97.6 F 08/05/20 08:32 Pulse 84 08/05/20 08:32 Resp 18 08/05/20 08:32 BP 100/68 08/05/20 08:32 Pulse Ox 98 08/05/20 08:32
[2020-08-05] MEDS: INSULIN GLARGINE 100 UNITS/ML SUB-Q SCH (21:29)
[2020-08-05] MEDS: QUEtiapine 200 MG TAB PO SCH (21:30)
[2020-08-06] MEDS: oxyCODONE 5 MG TAB PO PRN ×3 (05:35→23:08)
[2020-08-06] MEDS: INSULIN LISPRO 100 UNIT/ML SUB-Q SCH ×3 (08:02→16:54)
--- NOTE | 2020-08-06 09:10 | Progress Note ---
Subjective Date of service: 08/06/20 Principal diagnosis: Bipolar Disorder Subjective Comment: The patient was seen today, he is in the dayroom, and says he's feeling better, but has been "up and down." The patient says he slept well. He denies hallucinations of any kind. He verbalizes suicidal thoughts, but with no plan. He states "I feel way better. The thoughts are pretty much gone but there sometimes." REVIEW OF SYSTEMS Constitutional: Negative for weight loss ENT: Negative for stridor Respiratory: Negative for cough or hemoptysis All other systems reviewed and are negative MENTAL STATUS EXAMINATION General Appearance and Behavior: Age appropriate, good hygiene, not wearing appropriate clothes, good eye contact, cooperative with questioning. Cooperation: Participating/engaged Psychomotor Behavior: Psychomotor normal Mood: "not good" Affect and affective range: restricted, irritable Thought Process: Circumstantial, Illogical, Thought Content: SI/HI, hallucinations Speech: normal tone and pace Suicidal Ideation: Yes Homicidal Ideation: Yes Hallucinations: Auditory Delusions: None elicited Impulse Control: Impaired Insight and Judgment: Limited insight and judgment Memory: Limited Attention: Limited Orientation: Alert, oriented Assessment and Plan (1) Bipolar Disorder Current Visit: Yes Status: Acute Treatment Plan Patient admitted for inpatient psychiatric evaluation, medication adjustment and close monitoring The patient's behavior, mood, sleep and appetite will be closely monitored. Patient enrolled in individual and group therapeutic sessions and encouraged to attend. Patient provided with a safe and structured environment. Patient's physical health needs will be addressed by the Hospitalist. Hospitalist Consulted Labs including CBC, CMP, Lipid profile and Hemoglobin A1C levels ordered for baseline reference Social Assessment will be completed and the Fine Craft Artist will work with patien t and family to ensure a suitable and safe disposition Medication adjustment will be made as clinically indicated No changes today Usual Wellness Sabianism/Preservation: - Start Trazodone 50 mg po QHS & 50 mg po QHS PRN between 10 PM & 2 AM for insomnia - Start Melatonin 5 mg po QHS to promote circadian rhythm - Start [place]-3 for brain health, reduce impulsivity, and as adjunctive treatment for mood disorder, continue upon discharge given overall benefits. - Start B1 prophylaxis with 200 mg po for 5 days The patient agreed on the treatment plan, understood the risk, benefit, alternative treatment, potential consequence of no treatment, and gave informed consent. Estimated days: 1 Post hospital care: primary care provider, psychiatric provider Case staffed with Dr. Hall. Medications and Allergies Allergies Allergy/AdvReac Type Severity Reaction Status Date / Time trazodone Allergy Severe Priapism Verified 08/02/20 09:16 chlorpromazine HCl Allergy Hives Verified 08/02/20 09:16 [From Thorazine] haloperidol [From Haldol] Allergy Hives Verified 08/02/20 09:16 haloperidol lactate Allergy Hives Verified 08/02/20 09:16 [From Haldol] ziprasidone HCl [From Geodon] Allergy Hives Verified 08/02/20 09:16 ziprasidone mesylate Allergy Hives Verified 08/02/20 09:16 [From Geodon] Home Medications Medication Instructions Recorded Confirmed Last Taken Type oxyCODONE [roxiCODONE] 10 mg PO Q6H PRN #14 tablet 03/09/19 08/03/20 08/02/20 22:00 Rx Aspirin 325 mg PO QDAY #30 tablet 03/18/19 08/03/20 08/03/20 10:00 Rx QUEtiapine [SEROquel] 50 mg PO BIDBL #120 tablet 03/18/19 08/03/20 08/02/20 22:00 Rx QUEtiapine [SEROquel] 200 mg PO HS #30 tablet 03/18/19 08/03/20 08/02/20 22:00 Rx cloNIDine 0.3 mg PO BID #60 03/18/19 08/03/20 08/03/20 10:00 Rx ALPRAZolam [Xanax TAB] 2 mg PO DAILY 08/02/20 08/03/20 08/02/20 History Gabapentin [Neurontin] 300 mg PO BID 08/02/20 08/03/20 08/02/20 22:00 History Insulin Aspart [Insulin Aspart 5 unit SQ TID 08/02/20 08/03/20 Unknown History Flexpen] Lantus VIAL 40 units SQ HS 08/02/20 08/03/20 08/02/20 22:00 History Losartan/Hydrochlorothiazide 1 each PO DAILY 08/02/20 08/03/20 08/03/20 10:00 History [Losartan-Hctz 100-25 mg Tab] Active Meds: Active Medications Alprazolam (Alprazolam 1 Mg Tab) 2 mg PO DAILY [facility] Last Admin: 08/05/20 09:15 Dose: 2 mg Documented by: Aspirin (Aspirin 325 Mg Tab) 325 mg PO QDAY [facility] Last Admin: 08/05/20 09:13 Dose: 325 mg Documented by: Clonidine HCl (Clonidine 0.1 Mg Tab) 0.3 mg PO BID [facility] Last Admin: 08/05/20 21:30 Dose: Not Given Documented by: Gabapentin (Gabapentin 300 Mg Cap) 300 mg PO BID [facility] Last Admin: 08/05/20 21:29 Dose: 300 mg Documented by: Hydrochlorothiazide (Hydrochlorothiazide 25 Mg Tab) 25 mg PO QDAY [facility] Last Admin: 08/05/20 09:14 Dose: 25 mg Documented by: Insulin Glargine (Insulin [facility]ine 100 Units/Ml) [facility] Admin: 08/05/20 21:29 Dose: 40 units Documented by: Insulin Human Lispro (Insulin Lispro 100 Unit/Ml) 5 unit SUB-Q AC [facility] Last Admin: 08/06/20 08:02 Dose: 5 unit Documented by: Losartan Potassium (Losartan 50 Mg Tab) 100 mg PO QDAY [facility] Last Admin: 08/05/20 09:13 Dose: 100 mg Documented by: Oxycodone HCl (Oxycodone 5 Mg Tab) 10 mg PO Q6H PRN PRN Reason: Pain, Moderate (4-6) Last Admin: 08/06/20 05:35 Dose: 10 mg Documented by: Quetiapine Fumarate (Quetiapine 200 Mg Tab) 200 mg PO [facility] Last Admin: 08/05/20 21:30 Dose: 200 mg Documented by: Quetiapine Fumarate (Quetiapine 25 Mg Tab) 50 mg PO DAILY [facility] Last Admin: 08/05/20 09:15 Dose: 50 mg Documented by: Results - Results Labs/Vitals: Laboratory Last Values WBC 6.2 K/mm3 (4.5-11.0) 08/05/20 04:52 RBC 4.21 M/mm3 (3.65-5.03) 08/05/20 04:52 Hgb 12.3 gm/dl (11.8-15.2) 08/05/20 04:52 Hct 36.1 % (35.5-45.6) D 08/05/20 04:52 MCV 86 fl (84-94) 08/05/20 04:52 MCH 29 pg (28-32) 08/05/20 04:52 MCHC 34 % (32-34) 08/05/20 04:52 RDW 15.2 % (13.2-15.2) 08/05/20 04:52 Plt Count 199 K/mm3 (140-440) 08/05/20 04:52 Sodium 139 mmol/L (137-145) 08/05/20 04:52 Potassium 4.2 mmol/L (3.6-5.0) 08/05/20 04:52 Chloride 99.7 mmol/L (98-107) 08/05/20 04:52 Carbon Dioxide 37 mmol/L (22-30) H D 08/05/20 04:52 Anion Gap 7 mmol/L 08/05/20 04:52 BUN 14 mg/dL (9-20) 08/05/20 04:52 Creatinine 1.1 mg/dL (0.8-1.3) 08/05/20 04:52 Estimated GFR > 60 ml/min 08/05/20 04:52 BUN/Creatinine Ratio 13 % 08/05/20 04:52 Glucose 100 mg/dL (75-100) 08/05/20 04:52 POC Glucose 226 mg/dL (70-105) H 08/05/20 19:22 Hemoglobin A1c 9.2 % (4-6) H 08/03/20 18:54 Calcium 8.8 mg/dL (8.4-10.2) 08/05/20 04:52 Triglycerides 194 mg/dL (2-149) H 08/03/20 16:03 Cholesterol 143 mg/dL (50-199) 08/03/20 16:03 LDL Cholesterol Direct 96 mg/dL (50-130) 08/03/20 16:03 HDL Cholesterol 36 mg/dL (40-59) L 08/03/20 16:03 Cholesterol/HDL Ratio 3.97 % 08/03/20 16:03 TSH 5.430 mlU/mL (0.270-4.200) H 08/03/20 16:03 Last Vital Signs Temp 98.2 F 08/05/20 22:00 Pulse 82 08/05/20 22:00 Resp 18 08/06/20 05:35 BP 107/74 08/05/20 22:00 Pulse Ox 100 08/05/20 22:00
[2020-08-06] MEDS: hydroCHLOROthiazide 25 MG TAB PO SCH (10:26)
[2020-08-06] MEDS: cloNIDine 0.1 MG TAB PO SCH ×2 (10:26→21:35)
[2020-08-06] MEDS: ASPIRIN 325 MG TAB PO SCH (10:27)
[2020-08-06] MEDS: GABAPENTIN 300 MG CAP PO SCH ×2 (10:27→21:31)
[2020-08-06] MEDS: LOSARTAN 50 MG TAB PO SCH (10:27)
[2020-08-06] MEDS: ALPRAZolam 1 MG TAB PO SCH (10:27)
[2020-08-06] MEDS: QUEtiapine 25 MG TAB PO SCH (10:28)
[2020-08-06] MEDS: QUEtiapine 200 MG TAB PO SCH (21:31)
[2020-08-06] MEDS: INSULIN GLARGINE 100 UNITS/ML SUB-Q SCH (21:59)
[2020-08-07] MEDS: INSULIN LISPRO 100 UNIT/ML SUB-Q SCH ×2 (08:18→11:34)
[2020-08-07] MEDS: oxyCODONE 5 MG TAB PO PRN ×2 (08:35→14:25)
--- NOTE | 2020-08-07 08:55 | Discharge Summary ---
Providers - Providers Date of Admission: 08/03/20 18:11 Date of discharge: 08/07/20 Attending physician: HAZEL DELGADO MD 08/03/20 16:03 Consult to Physician [CONS] Routine Comment: Consulting Provider: PITER GREGORY Physician Instructions: Reason For Exam: manage medical conditions Primary care physician: QUALITY CONTROL SYSTEMS MANAGER Hospitalization Reason for admission: Depression, SI Admitting Diagnosis: F31.9 - BIPOLAR DISORDER, UNSPECIFIED Hospital course: The patient was provided inpatient psychiatric treatment with safe and supportive care, medication adjustment, adverse effect monitoring, medical evaluations, medical treatments, assessment and psycho-education. The patient's mood, cognition, behavior, moral support are improved and stabilized. St the time of discharge, the patient had no endangering behavior and no debilitating adverse effects. The patient agreed on potential consequences of no treatment and gave informed consent. Disposition: - TO HOME OR SELFCARE Time spent for discharge: 38 Allergies/Adverse Reactions: Allergies trazodone Allergy (Severe, Verified 08/02/20 09:16) Priapism chlorpromazine HCl [From Thorazine] Allergy (Verified 08/02/20 09:16) Hives haloperidol [From Haldol] Allergy (Verified 08/02/20 09:16) Hives haloperidol lactate [From Haldol] Allergy (Verified 08/02/20 09:16) Hives ziprasidone HCl [From Geodon] Allergy (Verified 08/02/20 09:16) Hives ziprasidone mesylate [From Geodon] Allergy (Verified 08/02/20 09:16) Hives Vital Signs: Last Vital Signs Temp 98.5 F 08/06/20 22:00 Pulse 81 08/06/20 22:00 Resp 18 08/06/20 22:00 BP 107/60 08/06/20 22:00 Pulse Ox 96 08/06/20 22:00 Last Lab: Laboratory Last Values WBC 6.2 K/mm3 (4.5-11.0) 08/05/20 04:52 RBC 4.21 M/mm3 (3.65-5.03) 08/05/20 04:52 Hgb 12.3 gm/dl (11.8-15.2) 08/05/20 04:52 Hct 36.1 % (35.5-45.6) D 08/05/20 04:52 MCV 86 fl (84-94) 08/05/20 04:52 MCH 29 pg (28-32) 08/05/20 04:52 MCHC 34 % (32-34) 08/05/20 04:52 RDW 15.2 % (13.2-15.2) 08/05/20 04:52 Plt Count 199 K/mm3 (140-440) 08/05/20 04:52 Sodium 139 mmol/L (137-145) 08/05/20 04:52 Potassium 4.2 mmol/L (3.6-5.0) 08/05/20 04:52 Chloride 99.7 mmol/L (98-107) 08/05/20 04:52 Carbon Dioxide 37 mmol/L (22-30) H D 08/05/20 04:52 Anion Gap 7 mmol/L 08/05/20 04:52 BUN 14 mg/dL (9-20) 08/05/20 04:52 Creatinine 1.1 mg/dL (0.8-1.3) 08/05/20 04:52 Estimated GFR > 60 ml/min 08/05/20 04:52 BUN/Creatinine Ratio 13 % 08/05/20 04:52 Glucose 100 mg/dL (75-100) 08/05/20 04:52 POC Glucose 174 mg/dL (70-105) H 08/06/20 20:00 Hemoglobin A1c 9.2 % (4-6) H 08/03/20 18:54 Calcium 8.8 mg/dL (8.4-10.2) 08/05/20 04:52 Triglycerides 194 mg/dL (2-149) H 08/03/20 16:03 Cholesterol 143 mg/dL (50-199) 08/03/20 16:03 LDL Cholesterol Direct 96 mg/dL (50-130) 08/03/20 16:03 HDL Cholesterol 36 mg/dL (40-59) L 08/03/20 16:03 Cholesterol/HDL Ratio 3.97 % 08/03/20 16:03 TSH 5.430 mlU/mL (0.270-4.200) H 08/03/20 16:03 Core Measure Documentation - Palliative Care Palliative Care/ Comfort Measures: Not Applicable - Core Measures Any of the following diagnoses?: none Exam - Constitutional Vitals: Temp Pulse Resp BP Pulse Ox 98.5 F 81 18 107/60 96 08/06/20 22:00 08/06/20 22:00 08/06/20 22:00 08/06/20 22:00 08/06/20 22:00 General appearance: Present: no acute distress - EENT Eyes: Present: PERRL, EOM intact ENT: hearing intact, clear oral mucosa - Neck Neck: Present: supple, normal ROM - Respiratory Respiratory effort: normal Plan Activity: advance as tolerated Weight Bearing Status: Weight Bear as Tolerated Care Plan Goals: Maintain good and stable mental health Plan of Treatment: The patient should be compliant with medications, not to use drugs, and not to drink alcohol. The patient understands that if suicidal ideas, homicidal ideas or any endangering feeling arise, the patient should seek assistance including, but not limited to crisis hotline, and emergency room. Health Concerns: HTN, hyperlipidemia, DM Assessment: Bipolar Disorder Follow up with: PRIMARY CARE, [Primary Care Provider] - 7 Days Prescriptions: QUEtiapine [SEROquel] 200 mg PO HS #30 tablet QUEtiapine [SEROquel] 50 mg PO DAILY #60 tablet
[2020-08-07 09:10] VITALS: BP 109/74
[2020-08-07] MEDS: QUEtiapine 25 MG TAB PO SCH (09:24)
[2020-08-07] MEDS: ALPRAZolam 1 MG TAB PO SCH (09:24)
[2020-08-07] MEDS: hydroCHLOROthiazide 25 MG TAB PO SCH (09:24)
[2020-08-07] MEDS: GABAPENTIN 300 MG CAP PO SCH (09:24)
[2020-08-07] MEDS: ASPIRIN 325 MG TAB PO SCH (09:24)
[2020-08-07] MEDS: cloNIDine 0.1 MG TAB PO SCH (09:25)
[2020-08-07] MEDS: LOSARTAN 50 MG TAB PO SCH (09:25)
== END 2020-08-07 15:58 | disposition home or self-care (01) | DRG 885 ==
LOC: UNDOADMIN 14:05 → 3A 14:05 → 5A 18:11
PROVIDERS: ADMIT Psychiatry & Neurology Psychiatry; ATTEND Psychiatry & Neurology Psychiatry
DX: F31.9 Bipolar disorder, unspecified (principal); E78.5 Hyperlipidemia, unspecified; I10 Essential (primary) hypertension; E11.9 Type 2 diabetes mellitus without complications; Z79.899 Other long term (current) drug therapy; Z82.49 Family history of ischemic heart disease and other diseases of the circulatory system; Z83.3 Family history of diabetes mellitus
CPT/HCPCS: 36415; 80048; 80061; 80307; 80320; 81001; 82962; 83036; 84443; 85025; 85027; G0378; G0480; J1815; U0003

== ENCOUNTER 2020-08-15 15:22 | Emergency (ER) | payer MEDICARE ==
--- NOTE | 2020-08-15 15:51 | Event Note ---
ED Screening Note Date of service: 08/15/20 Time: 15:50 ED Screening Note: Patient here with complaints of suicidal thoughts x Thursday Recently here for the same Denies plan This initial assessment/diagnostic orders/clinical plan/treatment(s) is/are subject to change based on patients health status, clinical progression and re- assessment by fellow clinical providers in the ED. Further treatment and workup at subsequent clinical providers discretion. Patient/guardian urged not to elope from the ED as their condition may be serious if not clinically assessed and managed. Initial orders include: Labs Dental health
[2020-08-15 15:58] LABS: Basophils % (Auto) 0.8 % (0.0-1.8); Eosinophils # (Auto) 0.1 K/mm3 (0.0-0.4); Eosinophils % (Auto) 1.4 % (0.0-4.3); Hematocrit 39.9 % (35.5-45.6); Hemoglobin 13.2 gm/dl (11.8-15.2); Lymphocytes # (Auto) 1.9 K/mm3 (1.2-5.4); Lymphocytes % (Auto) 28.8 % (13.4-35.0); Mean Corpuscular HGB Conc 33 % (32-34); Mean Corpuscular Volume 86 fl (84-94); Monocytes # (Auto) 0.4 K/mm3 (0.0-0.8); Monocytes % (Auto) 6.7 % (0.0-7.3); Red Blood Count 4.64 M/mm3 (3.65-5.03); Red Cell Distribution Width 15.9 % (13.2-15.2)
[2020-08-15 16:06] LABS: Bilirubin,Urine NEG (Negative); Blood,Urine NEG (Negative); Color,Urine Straw (Yellow); Protein,Urine <15 mg/dL mg/dL (Negative); RBC,Urine < 1.0 /HPF (0.0-6.0); Urobilinogen,Urine < 2.0 mg/dL (<2.0); WBC,Urine < 1.0 /HPF (0.0-6.0)
[2020-08-15 16:07] LABS: Platelet Count 216 K/mm3 (140-440)
[2020-08-15 16:10] LABS: Alanine Aminotransferase 16 units/L (7-56); Albumin 4.3 g/dL (3.9-5); BUN/Creatinine Ratio 11; Blood Urea Nitrogen 10 mg/dL (9-20); Calcium 9.2 mg/dL (8.4-10.2); Hemolysis Index 6
[2020-08-15 16:14] LABS: Amphetamine Screen,Urine Negative; Benzodiazepines Screen,Urine Negative; Cannabinoid Screen,Urine Negative; Cocaine Screen,Urine Negative; Methadone Screen,Urine Negative; Opiate Screen,Urine Negative
[2020-08-15] MEDS ORDERED: diphenhydrAMINE 50 MG/ML VIAL IM ONE (17:06)
--- NOTE | 2020-08-15 17:08 | Emergency Department Report ---
ED Psych HPI - General Chief Complaint: Psych Stated Complaint: MOOD SWINGS Time Seen by Provider: 08/15/20 15:50 Source: patient Mode of arrival: Ambulatory Limitations: No Limitations - History of Present Illness Initial Comments: 54-year-old male with a past medical history of diabetes, hypertension, bipolar disorder, and polysubstance abuse presents to the hospital complaining of anxiety, insomnia, and "not wanting to be here anymore" but does not endorse a plan to kill himself. As per medical record patient has had UDS that has been positive for cocaine, amphetamines, and marijuana in the past. He is most recently admitted to [facility] on August 02- for suicidal ideation with plan, homicidal ideation, and psychosis. Patient states he is taking his medications as prescribed does not feel any better. Patient states he is not currently using any drugs. He is requesting Ativan. No physical complaints reported. - Related Data Home Medications Medication Instructions Recorded Confirmed Last Taken ALPRAZolam [Xanax TAB] 2 mg PO DAILY 08/02/20 08/15/20 08/02/20 Insulin Aspart [Insulin Aspart 5 unit SQ TID 08/02/20 08/15/20 Unknown Flexpen] Lantus VIAL 40 units SQ HS 08/02/20 08/15/20 08/02/20 22:00 Lisinopril 5 mg PO DAILY 08/15/20 08/15/20 08/15/20 QUEtiapine [SEROquel] 200 mg PO DAILY 08/15/20 08/15/20 Unknown QUEtiapine [SEROquel] 400 mg PO HS 08/15/20 08/15/20 Unknown cloNIDine 0.1 mg PO BID 08/15/20 08/15/20 08/15/20 oxyCODONE [roxiCODONE] 20 mg PO Q6H PRN 08/15/20 08/15/20 Unknown Previous Rx's Medication Instructions Recorded Last Taken Type Aspirin 325 mg PO QDAY #30 tablet 03/18/19 08/03/20 10:00 Rx Allergies Allergy/AdvReac Type Severity Reaction Status Date / Time trazodone Allergy Severe Priapism Verified 08/15/20 15:27 chlorpromazine HCl Allergy Hives Verified 08/15/20 15:27 [From Thorazine] haloperidol [From Haldol] Allergy Hives Verified 08/15/20 15:27 haloperidol lactate Allergy Hives Verified 08/15/20 15:27 [From Haldol] ziprasidone HCl [From Geodon] Allergy Hives Verified 08/15/20 15:27 ziprasidone mesylate Allergy Hives Verified 08/15/20 15:27 [From Geodon] ED Review of Systems ROS: Stated complaint: MOOD SWINGS Other details as noted in HPI Comment: All other systems reviewed and negative ED Past Medical Hx - Past Medical History Hx Hypertension: Yes Hx Congestive Heart Failure: No Hx Diabetes: Yes Hx Renal Disease: No Hx Arthritis: No Hx Seizures: No Hx Psychiatric Treatment: Yes (bipolar) Hx Asthma: No Hx COPD: No Hx Dementia: No - Surgical History Hx Cholecystectomy: No Hx Appendectomy: No Additional Surgical History: ankle pins. Plate in head and rods in arms - Social History Smoking Status: Never Smoker Substance Use Type: None - Medications Home Medications: Home Medications Medication Instructions Recorded Confirmed Last Taken Type Aspirin 325 mg PO QDAY #30 tablet 03/18/19 08/15/20 08/03/20 10:00 Rx ALPRAZolam [Xanax TAB] 2 mg PO DAILY 08/02/20 08/15/20 08/02/20 History Insulin Aspart [Insulin Aspart 5 unit SQ TID 08/02/20 08/15/20 Unknown History Flexpen] Lantus VIAL 40 units SQ HS 08/02/20 08/15/20 08/02/20 22:00 History Lisinopril 5 mg PO DAILY 08/15/20 08/15/20 08/15/20 History QUEtiapine [SEROquel] 200 mg PO DAILY 08/15/20 08/15/20 Unknown History QUEtiapine [SEROquel] 400 mg PO HS 08/15/20 08/15/20 Unknown History cloNIDine 0.1 mg PO BID 08/15/20 08/15/20 08/15/20 History oxyCODONE [roxiCODONE] 20 mg PO Q6H PRN 08/15/20 08/15/20 Unknown History ED Physical Exam - General Limitations: No Limitations - Other Other exam information: General: No acute distress Head: Atraumatic Eyes: normal appearance ENT: Moist mucous membranes Neck: Normal appearance, no midline tenderness Chest: Clear to auscultation bilaterally CV: Regular rate and rhythm Abdomen: Soft, normal bowel sounds, nontender, nondistended, no rebound or guarding Back: Normal inspection Extremity: Normal inspection, full range of motion Neuro: Alert O x 3, no facial asymmetry, speech clear, no gross motor sensory deficit Psych: Agitated Skin: No rash ED Course Vital Signs 08/15/20 08/15/20 08/16/20 15:28 20:51 08:18 Temperature 98.5 F Pulse Rate 92 H 78 Respiratory 20 20 16 Rate Blood Pressure 155/88 Blood Pressure 140/98 [Right] O2 Sat by Pulse 97 98 Oximetry 08/16/20 08:24 Temperature 97.4 F L Pulse Rate 74 Respiratory 16 Rate Blood Pressure Blood Pressure 122/77 [Right] O2 Sat by Pulse 99 Oximetry ED Medical Decision Making - Lab Data Result diagrams: 08/15/20 15:33 08/15/20 15:33 Lab Results 08/15/20 08/15/20 08/15/20 Range/Units 15:33 15:33 15:33 WBC 6.6 (4.5-11.0) K/mm3 RBC 4.64 (3.65-5.03) M/mm3 Hgb 13.2 (11.8-15.2) gm/dl Hct 39.9 (35.5-45.6) % MCV 86 (84-94) fl MCH 29 (28-32) pg MCHC 33 (32-34) % RDW 15.9 H (13.2-15.2) % Plt Count 216 (140-440) K/mm3 Lymph % (Auto) 28.8 (13.4-35.0) % Ida % (Auto) 6.7 (0.0-7.3) % Eos % (Auto) 1.4 (0.0-4.3) % Baso % (Auto) 0.8 (0.0-1.8) % Lymph # (Auto) 1.9 (1.2-5.4) K/mm3 Ida # (Auto) 0.4 (0.0-0.8) K/mm3 Eos # (Auto) 0.1 (0.0-0.4) K/mm3 Baso # (Auto) 0.0 (0.0-0.1) K/mm3 Seg Neutrophils % 62.3 (40.0-70.0) % Seg Neutrophils # 4.1 (1.8-7.7) K/mm3 Sodium 136 L (137-145) mmol/L Potassium 4.0 (3.6-5.0) mmol/L Chloride 99.1 (98-107) mmol/L Carbon Dioxide 27 (22-30) mmol/L Anion Gap 14 mmol/L BUN 10 (9-20) mg/dL Creatinine 0.9 (0.8-1.3) mg/dL Estimated GFR > 60 ml/min BUN/Creatinine Ratio 11 % Glucose 331 H (75-100) mg/dL POC Glucose (70-105) mg/dL Calcium 9.2 (8.4-10.2) mg/dL Total Bilirubin 0.20 (0.1-1.2) mg/dL AST 19 (5-40) units/L ALT 16 (7-56) units/L Alkaline Phosphatase 89 (35-129) units/L Total Protein 7.5 (6.3-8.2) g/dL Albumin 4.3 (3.9-5) g/dL Albumin/Globulin Ratio 1.3 % Urine Color (Yellow) Urine Turbidity (Clear) Urine pH (5.0-7.0) Ur Specific Buhl (1.003-1.030) Urine Protein (Negative) mg/dL Urine Glucose (UA) (Negative) mg/dL Urine Ketones (Negative) mg/dL Urine Blood (Negative) Urine Nitrite (Negative) Urine Bilirubin (Negative) Urine Urobilinogen (<2.0) mg/dL Ur Leukocyte Esterase (Negative) Urine WBC (Auto) (0.0-6.0) /HPF Urine RBC (Auto) (0.0-6.0) /HPF Salicylates < 0.3 L (2.8-20.0) mg/dL Urine Opiates Screen Urine Methadone Screen Acetaminophen (10.0-30.0) ug/mL Ur Barbiturates Screen Ur Phencyclidine Scrn Ur Amphetamines Screen U Benzodiazepines Scrn Urine Cocaine Screen U Marijuana (THC) Screen Drugs of Abuse Note Plasma/Serum Alcohol (0-0.07) % 08/15/20 08/15/20 08/15/20 Range/Units 15:33 15:33 15:48 WBC (4.5-11.0) K/mm3 RBC (3.65-5.03) M/mm3 Hgb (11.8-15.2) gm/dl Hct (35.5-45.6) % MCV (84-94) fl MCH (28-32) pg MCHC (32-34) % RDW (13.2-15.2) % Plt Count (140-440) K/mm3 Lymph % (Auto) (13.4-35.0) % Ida % (Auto) (0.0-7.3) % Eos % (Auto) (0.0-4.3) % Baso % (Auto) (0.0-1.8) % Lymph # (Auto) (1.2-5.4) K/mm3 Ida # (Auto) (0.0-0.8) K/mm3 Eos # (Auto) (0.0-0.4) K/mm3 Baso # (Auto) (0.0-0.1) K/mm3 Seg Neutrophils % (40.0-70.0) % Seg Neutrophils # (1.8-7.7) K/mm3 Sodium (137-145) mmol/L Potassium (3.6-5.0) mmol/L Chloride (98-107) mmol/L Carbon Dioxide (22-30) mmol/L Anion Gap mmol/L BUN (9-20) mg/dL Creatinine (0.8-1.3) mg/dL Estimated GFR ml/min BUN/Creatinine Ratio % Glucose (75-100) mg/dL POC Glucose (70-105) mg/dL Calcium (8.4-10.2) mg/dL Total Bilirubin (0.1-1.2) mg/dL AST (5-40) units/L ALT (7-56) units/L Alkaline Phosphatase (35-129) units/L Total Protein (6.3-8.2) g/dL Albumin (3.9-5) g/dL Albumin/Globulin Ratio % Urine Color Straw (Yellow) Urine Turbidity Clear (Clear) Urine pH 6.0 (5.0-7.0) Ur Specific Buhl 1.015 (1.003-1.030) Urine Protein <15 mg/dl (Negative) mg/dL Urine Glucose (UA) >=500 (Negative) mg/dL Urine Ketones Neg (Negative) mg/dL Urine Blood Neg (Negative) Urine Nitrite Neg (Negative) Urine Bilirubin Neg (Negative) Urine Urobilinogen < 2.0 (<2.0) mg/dL Ur Leukocyte Esterase Neg (Negative) Urine WBC (Auto) < 1.0 (0.0-6.0) /HPF Urine RBC (Auto) < 1.0 (0.0-6.0) /HPF Salicylates (2.8-20.0) mg/dL Urine Opiates Screen Urine Methadone Screen Acetaminophen 5.0 L (10.0-30.0) ug/mL Ur Barbiturates Screen Ur Phencyclidine Scrn Ur Amphetamines Screen U Benzodiazepines Scrn Urine Cocaine Screen U Marijuana (THC) Screen Drugs of Abuse Note Plasma/Serum Alcohol < 0.01 (0-0.07) % 08/15/20 08/15/20 Range/Units 15:48 21:29 WBC (4.5-11.0) K/mm3 RBC (3.65-5.03) M/mm3 Hgb (11.8-15.2) gm/dl Hct (35.5-45.6) % MCV (84-94) fl MCH (28-32) pg MCHC (32-34) % RDW (13.2-15.2) % Plt Count (140-440) K/mm3 Lymph % (Auto) (13.4-35.0) % Ida % (Auto) (0.0-7.3) % Eos % (Auto) (0.0-4.3) % Baso % (Auto) (0.0-1.8) % Lymph # (Auto) (1.2-5.4) K/mm3 Ida # (Auto) (0.0-0.8) K/mm3 Eos # (Auto) (0.0-0.4) K/mm3 Baso # (Auto) (0.0-0.1) K/mm3 Seg Neutrophils % (40.0-70.0) % Seg Neutrophils # (1.8-7.7) K/mm3 Sodium (137-145) mmol/L Potassium (3.6-5.0) mmol/L Chloride (98-107) mmol/L Carbon Dioxide (22-30) mmol/L Anion Gap mmol/L BUN (9-20) mg/dL Creatinine (0.8-1.3) mg/dL Estimated GFR ml/min BUN/Creatinine Ratio % Glucose (75-100) mg/dL POC Glucose 261 H (70-105) mg/dL Calcium (8.4-10.2) mg/dL Total Bilirubin (0.1-1.2) mg/dL AST (5-40) units/L ALT (7-56) units/L Alkaline Phosphatase (35-129) units/L Total Protein (6.3-8.2) g/dL Albumin (3.9-5) g/dL Albumin/Globulin Ratio % Urine Color (Yellow) Urine Turbidity (Clear) Urine pH (5.0-7.0) Ur Specific Buhl (1.003-1.030) Urine Protein (Negative) mg/dL Urine Glucose (UA) (Negative) mg/dL Urine Ketones (Negative) mg/dL Urine Blood (Negative) Urine Nitrite (Negative) Urine Bilirubin (Negative) Urine Urobilinogen (<2.0) mg/dL Ur Leukocyte Esterase (Negative) Urine WBC (Auto) (0.0-6.0) /HPF Urine RBC (Auto) (0.0-6.0) /HPF Salicylates (2.8-20.0) mg/dL Urine Opiates Screen Negative Urine Methadone Screen Negative Acetaminophen (10.0-30.0) ug/mL Ur Barbiturates Screen Negative Ur Phencyclidine Scrn Negative Ur Amphetamines Screen Negative U Benzodiazepines Scrn Negative Urine Cocaine Screen Negative U Marijuana (THC) Screen Negative Drugs of Abuse Note Disclamer Plasma/Serum Alcohol (0-0.07) % - Medical Decision Making 54-year male presents to the hospital once again complaining of suicidal ideation and anxiety despite taking his psychiatric medication. 1013 has been signed. Current medications will be continued. Patient is medically clear for psychiatric admission Critical Care Time: No Critical care attestation.: If time is entered above; I have spent that time in minutes in the direct care of this critically ill patient, excluding procedure time. ED Disposition Clinical Impression: Suicidal ideation, Bipolar disorder, Anxiety, History of substance abuse, Medical clearance for psychiatric admission Disposition: DC-01 TO HOME OR SELFCARE Is pt being admited?: No Condition: Stable Additional Instructions: OUTPATIENT MENTAL HEALTH RESOURCES [facility], [facility] Kee Martines MD: [address] [place] [address] [place] [address] [facility]: [employer] [address] [place] [address] [place] [address] [phone] [facility]: [facility]: [address] [facility] [place] [address] [facility] [address] [facility]: Noman Ramirez MD: [id number] [facility] [id number] [facility]: [address] [place], [place] [id number] [phone] [place] CRISIS AND ACCESS LINE: Referrals: PRIMARY CAREMD [Primary Care Provider] - 3-5 Days
[2020-08-15] MEDS ORDERED: cloNIDine 0.1 MG TAB PO SCH (22:00)
[2020-08-15] MEDS ORDERED: INSULIN GLARGINE 100 UNITS/ML SUB-Q SCH (22:00)
[2020-08-15] MEDS ORDERED: QUEtiapine 200 MG TAB PO SCH (22:00)
[2020-08-15] MEDS ORDERED: CLONIDINE 0.3 MG PO SCH (22:00)
[2020-08-15] MEDS ORDERED: LANTUS 40 UNIT SQ SCH (22:00)
[2020-08-16] MEDS ORDERED: INSULIN LISPRO 100 UNIT/ML SUB-Q SCH (07:30)
[2020-08-16] MEDS ORDERED: NON-FORMULARY EACH (Insulin Aspart [Insulin Aspart Flexpen] 100 UNIT/ML Insuln.Pen) SQ SCH (08:00)
--- NOTE | 2020-08-16 08:17 | Consultation ---
History of Present Illness - Reason for Consult Consult date: 08/16/20 Reason for consult: SI - History of Present Psychiatric Illness Per ED Note: 54-year-old male with a past medical history of diabetes, hypertension, bipolar disorder, and polysubstance abuse presents to the hospital complaining of anxiety, insomnia, and "not wanting to be here anymore" but does not endorse a plan to kill himself. As per medical record patient has had UDS that has been positive for cocaine, amphetamines, and marijuana in the past. He is most recently admitted to [facility] on August 02 for suicidal ideation with plan, homicidal ideation, and psychosis. Patient states he is taking his medications as prescribed does not feel any better. Patient states he is not currently using any drugs. He is requesting Ativan. No physical complaints reported. Prakash Juarez is a 54y/o male patient who is known to me. The patient was admitted to [facility]-psych this month for same symptoms. He is calm, and cooperative. He is a/o x 3. He describes his mood as "okay." He says he's been feeling "a little suicidal thinking about my mom." He denies having a plan, and states "the thoughts come and goe. I think about it sometimes." The patient then says he's going back to where he is from soon. He says "I'm living with my sister right now but I came here to get some things in order before I go back." The patient has a history of drug use, but denies use this time. He denies hallucinations of any kind. PAST PSYCHIATRIC HISTORY Diagnoses: Bipolar Suicide attempts or Self-harm behavior: Yes Prior psychiatric hospitalizations: Yes Substance Abuse history: THC, cocaine Previous psychiatric medications tried: Seroquel, xanax Outpatient treatment: Yes PAST MEDICAL HISTORY: None reported Family Psychiatric History: None reported or documented SOCIAL HISTORY Marital Status: Living Arrangements: alone Employment Status: Unemployed Access to guns/weapons: Denies Education: high school History of Abuse: Unknown Legal History: None reported REVIEW OF SYSTEMS Constitutional: Negative for weight loss ENT: Negative for stridor Respiratory: Negative for cough or hemoptysis All other systems reviewed and are negative MENTAL STATUS EXAMINATION General Appearance and Behavior: Age appropriate, good hygiene, not wearing appropriate clothes, good eye contact, cooperative with questioning. Cooperation: Participating/engaged Psychomotor Behavior: Psychomotor normal Mood: "okay" Affect and affective range: congruent with stated mood Thought Process: Goal directed Thought Content: "SI comes and goes" Speech: normal tone and pace Suicidal Ideation: "a little, comes and goes Homicidal Ideation: Denies Hallucinations: Denies Delusions: None elicited Impulse Control: Normal Insight and Judgment: Limited insight and judgment Memory: Limited Attention: Limited Orientation: Alert, oriented Assessment and Plan (1) Bipolar Disorder Current Visit: Yes Status: Acute Treatment Plan D/C 1013 Continue previously prescribed meds. Sitter: Defer to primary Medical: Per primary Disposition: Do not recommend acute inpatient psychiatric treatment. The patient symptoms are not severe enough to be inpatient. He can be managed on an outpatient basis. Male Impersonator to give safety plan Will sign off. Thank you for this consult. Case staffed with Dr. Hall Medications and Allergies Allergies Allergy/AdvReac Type Severity Reaction Status Date / Time trazodone Allergy Severe Priapism Verified 08/15/20 15:27 chlorpromazine HCl Allergy Hives Verified 08/15/20 15:27 [From Thorazine] haloperidol [From Haldol] Allergy Hives Verified 08/15/20 15:27 haloperidol lactate Allergy Hives Verified 08/15/20 15:27 [From Haldol] ziprasidone HCl [From Geodon] Allergy Hives Verified 08/15/20 15:27 ziprasidone mesylate Allergy Hives Verified 08/15/20 15:27 [From Geodon] Home Medications Medication Instructions Recorded Confirmed Last Taken Type Aspirin 325 mg PO QDAY #30 tablet 03/18/19 08/15/20 08/03/20 10:00 Rx ALPRAZolam [Xanax TAB] 2 mg PO DAILY 08/02/20 08/15/20 08/02/20 History Insulin Aspart [Insulin Aspart 5 unit SQ TID 08/02/20 08/15/20 Unknown History Flexpen] Lantus VIAL 40 units SQ HS 08/02/20 08/15/20 08/02/20 22:00 History Lisinopril 5 mg PO DAILY 08/15/20 08/15/20 08/15/20 History QUEtiapine [SEROquel] 200 mg PO DAILY 08/15/20 08/15/20 Unknown History QUEtiapine [SEROquel] 400 mg PO HS 08/15/20 08/15/20 Unknown History cloNIDine 0.1 mg PO BID 08/15/20 08/15/20 08/15/20 History oxyCODONE [roxiCODONE] 20 mg PO Q6H PRN 08/15/20 08/15/20 Unknown History Active Meds: Active Medications Alprazolam (Alprazolam 1 Mg Tab) 2 mg PO DAILY [facility] Aspirin (Aspirin 325 Mg Tab) 325 mg PO QDAY [facility] Clonidine HCl (Clonidine 0.1 Mg Tab) 0.1 mg PO BID [facility] Insulin Glargine (Insulin Glargine 100 Units/Ml) 40 units SUB-Q QHS [facility] Last Admin: 08/15/20 22:14 Dose: 40 units Documented by: Insulin Human Lispro (Insulin Lispro 100 Unit/Ml) 5 unit SUB-Q AC [facility] Last Admin: 08/16/20 08:10 Dose: Not Given Documented by: Lisinopril (Lisinopril 5 Mg Tab) 5 mg PO DAILY [facility] Quetiapine Fumarate (Quetiapine 200 Mg Tab) 400 mg PO [facility] Last Admin: 08/15/20 21:46 Dose: 400 mg Documented by: Quetiapine Fumarate (Quetiapine 200 Mg Tab) 400 mg PO DAILY [facility] Mental Status Exam - Vital signs Last Vital Signs Temp 98.5 F 08/15/20 15:28 Pulse 78 08/15/20 20:51 Resp 20 08/15/20 20:51 BP 140/98 08/15/20 20:51 Pulse Ox 98 08/15/20 20:51 Results Result Diagrams: 08/15/20 15:33 08/15/20 15:33 Abnormal lab results 08/15/20 08/15/20 08/15/20 Range/Units 15:33 15:33 15:33 RDW 15.9 H (13.2-15.2) % Sodium 136 L (137-145) mmol/L Glucose 331 H (75-100) mg/dL POC Glucose (70-105) mg/dL Salicylates < 0.3 L (2.8-20.0) mg/dL Acetaminophen (10.0-30.0) ug/mL 08/15/20 08/15/20 Range/Units 15:33 21:29 RDW (13.2-15.2) % Sodium (137-145) mmol/L Glucose (75-100) mg/dL POC Glucose 261 H (70-105) mg/dL Salicylates (2.8-20.0) mg/dL Acetaminophen 5.0 L (10.0-30.0) ug/mL All other labs normal.
[2020-08-16 08:25] VITALS: BP 122/77
[2020-08-16] MEDS ORDERED: QUEtiapine 25 MG TAB PO SCH (10:00)
[2020-08-16] MEDS ORDERED: ALPRAZolam 1 MG TAB PO SCH (10:00)
[2020-08-16] MEDS ORDERED: cloNIDine 0.1 MG TAB PO SCH (10:00)
[2020-08-16] MEDS ORDERED: NON-FORMULARY EACH (Alprazolam [Xanax Tab] 2 MG Tablet) PO SCH (10:00)
[2020-08-16] MEDS ORDERED: ASPIRIN 325 MG TAB PO SCH (10:00)
[2020-08-16] MEDS ORDERED: QUEtiapine 200 MG TAB PO SCH (10:00)
[2020-08-16] MEDS ORDERED: LISINOPRIL 5 MG TAB PO SCH (10:00)
== END 2020-08-16 09:00 | disposition home or self-care (01) ==
LOC: ED 15:22
DX: F31.9 Bipolar disorder, unspecified (principal); F41.9 Anxiety disorder, unspecified; F19.10 Other psychoactive substance abuse, uncomplicated; Z04.6 Encounter for general psychiatric examination, requested by authority; I10 Essential (primary) hypertension; E11.9 Type 2 diabetes mellitus without complications; Z79.899 Other long term (current) drug therapy; Z88.8 Allergy status to other drugs, medicaments and biological substances; Z20.822 Contact with and (suspected) exposure to COVID-19
CPT/HCPCS: 36415; 80053; 80307; 81001; 82962; 85025; 96372; 99284; J1200; U0003; 80320; G0480; J1815